=== PATIENT | male | born 1930 | race African-American/Black ===

== ENCOUNTER 2017-02-13 12:59 | Inpatient (IN) ==
--- NOTE | 2017-02-13 14:06 | ED EKG INTERP ---
EKG Interpretation - EKG Time of EKG reading by physician:: 13:40 EKG Read and Signed by:: Reagan Simpson EKG Interpretation (*Must complete 3 of following elements*): Abnormal Rate: 69 Rhythm: normal sinus rhythm Comments: nonspecific T wave abnormality. Attestation - Scribe Verification/Attestation Scribe:: Kathi Burgos Acting as Scribe for:: Reagan Simpson Scribe documention review:: This chart was documented by a scribe and accurately reflects the service the provider performed and the decisions made by the provider.
--- NOTE | 2017-02-13 14:33 | PROVIDER DOCUMENTATION ---
HPI-Respiratory General - General Chief Complaint: Shortness of Breath Stated Complaint: SOB Time Seen by Provider: 02/13/17 14:19 Source: patient, family Allergies/Adverse Reactions: Patient Allergies Allergy/AdvReac Type Severity Reaction Status Date / Time No Known Allergies Allergy Verified 08/27/16 17:51 Home Medications: Home Medication List Medication Instructions Recorded Confirmed Last Taken Type Albuterol Sulfate Inhaler 2 puff INH Q4-6H PRN PRN 08/27/16 02/13/17 02/13/17 08 :00 History [Ventolin Hfa] Hydralazine HCl 100 mg PO TID 08/27/16 02/13/17 02/13/17 12:00 History Omeprazole [Prilosec] 20 mg PO DAILY@0700 08/27/16 02/13/17 02/13/17 07:00 History Tamsulosin [Flomax] 0.4 mg PO DAILY 08/27/16 02/13/17 02/13/17 07:00 History Meclizine [Antivert] 25 mg PO Q6H PRN PRN 11/05/16 02/13/17 Unknown History Minoxidil [Loniten] 2.5 mg PO DAILY #30 tablet 11/15/16 02/13/17 02/13/17 08:00 Rx Albuterol Sulfate [Ventolin] 2 inh IH Q6HR 02/13/17 02/13/17 02/13/17 08:00 History Amlodipine Besylate [Norvasc] 5 mg PO DAILY 02/13/17 02/13/17 02/13/17 08:00 History Apixaban [Eliquis] 2.5 mg PO BID 02/13/17 02/13/17 02/13/17 08:00 History Cyclobenzaprine [Flexeril] 10 mg PO DAILY 02/13/17 02/13/17 02/13/17 08:00 History Diclofenac Sodium 50 mg PO TID 02/13/17 02/13/17 02/13/17 08:00 History Fluticasone/Vilanterol [Breo 1 each IH DAILY 02/13/17 02/13/17 02/13/17 08:00 History Ellipta 200-25 Mcg INH] Furosemide [Lasix] 40 mg PO BID 02/13/17 02/13/17 02/13/17 08:00 History LISINOpril [Prinivil] 20 mg PO DAILY 02/13/17 02/13/17 02/13/17 08:00 History Tramadol [Ultram] 50 mg PO Q6H PRN PRN 02/13/17 02/13/17 Unknown History - History of Present Illness-Resp Nature of Presenting Problem: 86 y/o M with history of CHF, HTN, asthma presents per Dr. Bai for SOB x 2- 3 months. Lasix was increased 2 weeks ago, however patient continues to have worsening SOB. Patient moved appt up from March to today due to worsening SOB. He was seen by Dr. Bai today and advised to come to the ER for failure of outpatient therapy. He is on home O2 (3L). Family reports compliance with asthma medications. He has no improvement with breathing tx. Review of Systems - Adult - REVIEW OF SYSTEMS - ADULT Constitutional: reports: no symptoms reported. denies: chills, fever Eyes: reports: no symptoms reported Ears, Nose, Mouth & Throat: reports: no symptoms reported Cardiovascular: reports: edema. denies: chest pain Respiratory: reports: see HPI Gastrointestinal: reports: no symptoms reported. denies: abdominal pain, nausea , vomiting Genitourinary: reports: no symptoms reported Musculoskeletal: reports: no symptoms reported Integumentary: reports: no symptoms reported Neurological: reports: no symptoms reported Psychiatric: reports: no symptoms reported Endocrine: reports: no symptoms reported Hematologic/Lymphatic: reports: no symptoms reported Allergic/Immunologic: reports: no symptoms reported All Other Systems: Reviewed and Negative Past History - Adult - PAST MEDICAL HISTORY-ADULT Review of Records: reports: Old Records Reviewed, Nursing Assessment Review, Medications Reviewed Physical Exam-General - PHYSICAL EXAM-ADULT Initial Vital Signs Reviewed: Yes - CONSTITUTIONAL General Appearance: alert, no apparent distress - EYES Eyes: PERRL/EOMI, pink conjunctivae - HEAD, EARS, NOSE, MOUTH & THROAT HENMT: normocephalic/atraumatic - NECK Neck: normal inspection - RESPIRATORY Respiratory: chest non-tender, no pleuratic chest pain, no respiratory distress , crackles - CARDIOVASCULAR Cardiovascular: regular rate, rhythm (pitting edema of upper and lower extremities) - GASTROINTESTINAL (ABDOMEN) Abdominal Exam: non tender, soft - LYMPHATIC Lymphatic: no adenopathy - MUSCULOSKELETAL Back Exam: normal inspection Extremity: pedal edema. negative: erythema, tenderness - SKIN Integumentary: normal color, normal turgor, warm/dry - PSYCHIATRIC Psych/Mental Status: normal mood/affect, normal thought content, normal thought process, oriented x 3 Progress - PLAN OF CARE/RESULTS Progress/Plan/Lab Results: 3:54PM: Discussed patient with Dr. Simpson who viewed the xray with me. Xray shows pulmonary edema. Last Cr (11/2016) was 1.5. Recommends Lasix 80mg IV. - REASSESSMENT Reassessment #1 Time Reassessed: 16:38 (VSS. O2 sat 99% on 3L. Patient sleeping and in no distress. Discussed admission with patient and family, who want admission for relief of volume overload.) Status: improving - XRAY 1 XRAY Study: Chest XRAY Interpretation: pulmonary edema c/w CHF Departure - Departure Time of Disposition Order: 16:31 DIAGNOSIS: Volume overload, CHF (congestive heart failure), Pulmonary edema, Shortness of breath Disposition: ADMITTED INPATIENT 09 Certified Medical Emergency: Emergent Condition: Stable Referrals: Melissa Delarosa MD [Primary Care Provider] - Attestation - Physician/ KATHLEEN Attestation Patient care was provided by Advanced Practice Provider:: Yes Advanced Practice Provider:: Tita Alonso Advanced Practice Provider documentation review:: The Mid-level provider documentation, treatment plan and medical decision making was reviewed by the physician who agrees with all treatment and medical decision making by the MLP.
--- NOTE | 2017-02-13 15:25 | Diag Imaging Result Document ---
PROCEDURE NAME: CHEST-PORTABLE - 02/13/2017 PORTABLE CHEST: COMPARISON: 11/05/2016. FINDINGS: The lungs are well expanded. The heart is enlarged. There is pulmonary edema. There are also pleural effusions that are small and possibly moderate in size. Atelectasis is found in the lower lungs. IMPRESSION: Findings consistent with congestive failure.
[2017-02-13 15:32] LABS: MANUAL DIFF NEEDED? NO
[2017-02-13 15:49] LABS: INR 1.22; PROTIME 12.4 Seconds (9.2-11.7)
[2017-02-13 15:53] LABS: ALBUMIN 3.5 g/dL (3.5-5.0); CALCIUM 9.3 mg/dL (8.8-10.2); MAGNESIUM 1.9 mg/dL (1.5-2.7); POTASSIUM 3.5 mmol/L (3.5-5.1); TOTAL BILIRUBIN 0.72 mg/dL (0.20-1.00); TOTAL PROTEIN 6.9 g/dL (6.3-8.3)
[2017-02-13] MEDS ORDERED: LASIX IV ONE (15:53)
[2017-02-13 15:59] LABS: BASO% 0.3 % (0.0-0.8); EOS# 0.08 X1000 (0.0-0.7); EOS% 2.3 % (0.0-10.0); HEMATOCRIT 23.9 % (42.0-52.0); HEMOGLOBIN 7.8 g/dL (14.0-18.0); LYMPH# 0.17 X1000 (1.2-3.4); MCH 31.2 PG (27-31); MCHC 32.6 g/dL (33-37); MCV 95.6 FL (81-99); MONO# 0.37 X1000 (0.11-0.59); MONO% 10.9 % (1.7-9.3); MPV 12.2 FL (7.4-10.4); NEUT% 81.5 % (42.2-75.2); PLT 102 X1000 (130-400)
[2017-02-13] MEDS ORDERED: ANTIVERT PO PRN (16:50)
[2017-02-13] MEDS ORDERED: VENTOLIN HFA INH PRN (16:50)
[2017-02-13] MEDS ORDERED: VOLTAREN PO SCH (17:00)
[2017-02-13 17:23] LABS: IRON SATURATION 29 %; TIBC 145 ug/dL; TOTAL IRON 42 ug/dL (53-167); UNBOUND IRON 103 ug/dL (112-346)
--- NOTE | 2017-02-13 17:45 | HISTORY AND PHYSICAL ---
HISTORY OF PRESENT ILLNESS: This is an 86-year-old. His main complaint is having more shortness of breath, trouble breathing, increased orthopnea, noticed increased swelling in his legs, but also was arms. Denies fever or chills. No pleuritic pain. No pressure from his chest. He is trying to get ready to the possibly have a TURP for benign prostatic hypertrophy. He has had to have a Apple catheter placed and Dr. Corey Bustillo has been involved in that, so he had a Apple catheter in. OTHER PAST MEDICAL HISTORY: 1. Atrial fibrillation, which I think is chronic. 2. Hypertension. 3. Dyslipidemia. 4. COPD. 5. Catheter placement. Benign prostatic hypertrophy. 6. He has been told he had congestive heart failure and looking back he has had a myocardial perfusion scan done in March 2015 and negative Lexiscan stress electrocardiogram. Images revealed dilated left ventricle. There is a fixed defect in the mid and base inferior wall and in addition there is a fixed defect in the left ventricle diagnostic of infarct or scar. Ejection fraction is 52%. Low-grade aliza-infarct ischemia in the inferior wall at that time. Echocardiogram done in 08/29/2016, study technically difficulty, had moderate concentric LVH. Ejection fraction 55%. Moderate to significantly dilated right ventricle. Mild degree of aortic stenosis. Mean gradient was 16 mmHg. Moderate degree of aortic regurgitation. Impaired left ventricular relaxation, and a moderate degree of mitral regurgitation. Pulmonary pressure was 47 mmHg at that time. 7. He had carotid Doppler, coronary calcium report. I am not sure that I can pull up these results. He had a carotid Doppler study in March 2015, right side remains satisfactory patent, post endarterectomy so apparently he has had a right endarterectomy and the left, stenosis was 40-59%. REVIEW OF SYSTEMS: General: He is not sure but thinks he is gaining weight. Mainly fluid weight, apparently he has been eating okay. He has reported increased shortness of breath, increased dyspnea on exertion. Increased orthopnea. Denies any chest pain, pleuritic pain. HEENT: Unremarkable. Respiratory: As above. Cardiovascular: No chest pain or tachy palpitation. GI/: No gross hematuria dysuria. Neurologic: No new focal complaints. Endocrinologic/Hematologic: No significant history. PHYSICAL EXAMINATION: GENERAL: Awake and alert, pleasant, oriented x3. VITAL SIGNS: Afebrile, temperature 93.5 degrees, pulse 69, respirations 24, blood pressure 133/86. HEENT: Pupils are equal, round. LUNGS: Clear with rales at the bases, but no wheezing. CVP was about x11 cm water pressure from angle of Toño. Positive hepatojugular reflux. EXTREMITIES: Without clubbing, cyanosis, or edema. His arms with 3+ edema in his legs with a 1 to 2+ edema from ankle all the way to the corey. ABDOMEN: Soft. SKIN: Warm and dry. INTEGUMENT: Chronic venous stasis dermatosis appreciated. LABORATORY DATA: White count 3410, hematocrit 23, platelet count 102,000. Sodium 142, potassium 3.5, chloride 102, bicarb 29, BUN 33, creatinine 1.6. Blood sugar 113, magnesium 1.9, proBNP was 35,000. Troponin was 0.101 and CPK 46. ProTime 12.4, PTT 27. IMAGING: Chest x-ray, findings consistent with congestive heart failure. Lungs were well expanded. Heart enlarged. There is pulmonary edema. There are also pleural effusions that are small and possibly moderate-sized, atelectasis found in both lower lungs. ASSESSMENT AND PLAN: 1. Appears to have diastolic dysfunction and he has chronic kidney disease. His serum creatinine is 1.6. Comparing his creatinines in the past, his lowest was 1.3 in November 2016, his baseline is somewhere between 1.3 and 1.6, so this may not have changed much. Electrolytes look okay. I am going to start off with 80 mg of Lasix intravenously q.12 hours. Ask Cardiology to kind of help assist as well as Dr. English for Nephrology. We will follow electrolytes, including magnesium. We will check his thyroid function. Gives no history to indicate ischemic symptoms or cardiac ischemia. 2. Chronic kidney disease, aware. 3. Benign prostatic hypertrophy. Trying to get ready for a transurethral resection of the prostate. 4. Hypertension. Blood pressures, we will monitor. MEDICATIONS: He is on Ultram 50 mg p.o. q.6 hours p.r.n. Flomax 0.4 mg a day. Prilosec 20 mg a day. Minoxidil 2.5 mg daily. Antivert 25 q.6h p.r.n. Lisinopril 20 mg a day. Hydralazine 100 mg t.i.d. Lasix 40 mg b.i.d. Breo Ellipta 200-25, 1 a day. Diclofenac 50 mg p.o. t.i.d. Flexeril 10 mg daily. Eliquis 2.5 mg b.i.d. Amlodipine 5 mg a day. He is on albuterol sulfate and albuterol inhaler and also puffer.
[2017-02-13] MEDS: ALBUTEROL NEB INH SCH (22:00)
[2017-02-13] MEDS: APRESOLINE PO SCH (22:52)
[2017-02-13] MEDS: ELIQUIS PO SCH (22:53)
[2017-02-14] MEDS: ALBUTEROL NEB INH SCH ×4 (04:00→22:45)
--- NOTE | 2017-02-14 07:51 | EKG Report ---
Test Performed on : 02/14/2017 07:37:08 AM Test Reason : Heart Failure Admission Blood Pressure : / mmHG Vent. Rate : 068 BPM Atrial Rate : 068 BPM P-R Int : 000 ms QRS Dur : 104 ms QT Int : 444 ms P-R-T Axes : 000 072 232 degrees QTc Int : 472 ms Atrial fibrillation. Low voltage QRS Cannot rule out Anterior infarct , age undetermined Abnormal ECG When compared with ECG of 14-FEB-2017 07:36, (Unconfirmed) Nonspecific T wave abnormality no longer evident in Anterior leads QT has lengthened Confirmed by Marck CARVALHO, Skip Santana ([id number]) on 02/16/2017 1:14:24 PM
[2017-02-14] MEDS ORDERED: NORVASC PO SCH (09:00)
[2017-02-14] MEDS ORDERED: LONITEN PO SCH (09:00)
[2017-02-14 09:03] LABS: MANUAL DIFF NEEDED? NO
[2017-02-14 09:17] LABS: BASO% 0.3 % (0.0-0.8); EOS# 0.13 X1000 (0.0-0.7); EOS% 3.4 % (0.0-10.0); HEMATOCRIT 23.9 % (42.0-52.0); HEMOGLOBIN 7.7 g/dL (14.0-18.0); LYMPH# 0.21 X1000 (1.2-3.4); LYMPH% 5.5 % (20.5-51.1); MCH 30.4 PG (27-31); MCHC 32.2 g/dL (33-37); MCV 94.5 FL (81-99); MONO# 0.35 X1000 (0.11-0.59); MONO% 9.1 % (1.7-9.3); MPV 12.3 FL (7.4-10.4); NEUT% 81.7 % (42.2-75.2); PLT 102 X1000 (130-400); RBC 2.53 XMIL (4.7-6.1)
[2017-02-14 10:02] LABS: ALBUMIN 3.5 g/dL (3.5-5.0); MAGNESIUM 1.9 mg/dL (1.5-2.7); POTASSIUM 3.5 mmol/L (3.5-5.1); TOTAL BILIRUBIN 0.79 mg/dL (0.20-1.00); TOTAL PROTEIN 6.7 g/dL (6.3-8.3); URIC ACID 9.1 mg/dL (3.4-7.0)
[2017-02-14 10:22] LABS: FREE T4 1.19 ng/dL (0.93-1.70)
[2017-02-14] MEDS: BREO ELLIPTA 200/25 MCG INH INH SCH (10:35)
[2017-02-14] MEDS ORDERED: LASIX IV ONE (11:00)
[2017-02-14] MEDS: APRESOLINE PO SCH ×3 (11:00→21:12)
[2017-02-14] MEDS: ELIQUIS PO SCH ×2 (11:00→21:12)
[2017-02-14] MEDS: ASPIRIN PO SCH (11:03)
[2017-02-14] MEDS: PRINIVIL PO SCH (11:06)
[2017-02-14] MEDS: PRILOSEC PO SCH (11:09)
[2017-02-14] MEDS: ZAROXOLYN PO SCH (11:09)
[2017-02-14] MEDS: LASIX IV SCH (11:09)
[2017-02-14] MEDS: FLEXERIL PO SCH (11:10)
[2017-02-14] MEDS: FLOMAX PO SCH (11:11)
--- NOTE | 2017-02-14 12:11 | PROGRESS NOTE ---
DATE: 02/14/2017 Mr. Hutchison is breathing a little bit better. He is diuresing some. He is in sinus rhythm at the present time. Denies any pain. Apple catheter in place. Afebrile. Pulse 68, respirations 16, blood pressure 130/72.HEENT: Pupils are equal, round, react to light and accommodation. Oral and nasal mucosa unremarkable. Conjunctivae pink. CVP about 12 cm of water pressure. Lungs: With rales at the bases anterolateral Cardiovascular: Regular rhythm and rate. Abdomen: With some edema as well as upper extremities with 2+ to 3+ edema. Lower extremities 2+ edema. LABS: Reviewed from today: White count 3840, hematocrit 23, platelet count 102,000. Chemistry: Sodium 146, potassium 3.5, chloride 102, bicarb 29, BUN 33, creatinine 1.5. ProBNP 34,844. Troponin was 0.122. ASSESSMENT AND PLAN: 1. Anasarca with diastolic dysfunction. Long history of hypertension. Continue to try and diurese. Cardiology and Nephrology involved. Creatinine was 1.5 this morning. 2. Chronic kidney disease. Making some urine output. Urine output from yesterday was about 1000 mL. 3. Benign prostatic hypertrophy. Apple catheter in. I have discussed with Dr. Bustillo. Make sure we keep the Apple catheter in place. He may need a TURP, he probably will need [address], but right now trying to get his fluid down. 4. Hypertension. Blood pressure appears fairly well controlled. Watching his afterload. Review of his orders: We have him on Zaroxolyn 5 mg a day. Aspirin 81 mg a day. Prinivil 20 mg a day. Prilosec 20 mg daily. Norvasc 5 mg a day. Lasix 80 mg IV q.12. Apresoline 100 mg t.i.d. Flomax 0.4 mg a day. He is taking Flexeril 10 mg a day. Eliquis 2.5 b.i.d. Fluticasone inhaler 1 puff b.i.d. Albuterol inhalers as needed.
--- NOTE | 2017-02-14 14:04 | CONSULTATION ---
DATE OF CONSULTATION: 02/14/2017 IMPRESSIONS: 1. Acute on chronic biventricular heart failure of mixed etiology with diastolic left ventricular failure and cor pulmonary contributing. Patient has associated anasarca. 2. Atrial fibrillation, chronic. 3. Severe chronic obstructive pulmonary disease requiring home oxygen. 4. Mild coronary atherosclerosis by previous coronary angiography in 2014. 5. Hyperlipidemia. 6. Significant anemia, recurrent. Etiology not clear. 7. History of atherosclerotic carotid disease. 8. Acute on chronic renal failure. RECOMMENDATIONS: 1. Diurese with intravenous Lasix. 2. Given severity of anemia and with patient symptomatic from congestive heart failure and fever, transfusion of packed red cells. 3. Manage COPD as you are doing. HISTORY: This 86-year-old male with a past history of chronic congestive heart failure with anasarca, severe COPD requiring home oxygen, chronic atrial ablation, anemia, chronic kidney disease, and hypertension, was admitted through the emergency room for management of progressive dyspnea and worsening anasarca with diagnosis of acute on chronic congestive heart failure. He has a long history of dyspnea symptoms and has severe COPD requiring home oxygen. He has also had significant anasarca in the past and it is not really clear if he has ever completely been free of edema in the last 6 months or so. He was hospitalized several months ago with severe anemia and congestive heart failure and improved with diuresis. He did require transfusion at that time. He was seen in our office in December for preop evaluation for a urologic procedure and was noted to have anasarca at that time and edema as well. He has continued with significant edema and anasarca and has more recently developed progressive shortness of breath, prompting him to come in. There has been no chest pain. He is not aware of any bright red blood per rectum or melena. PAST MEDICAL HISTORY: 1. Chronic congestive heart failure of mixed etiology with left ventricular diastolic dysfunction and cor pulmonale, associated edema with tendency for anasarca. 2. Mild coronary atherosclerosis. 3. Chronic atrial fibrillation. 4. Severe COPD requiring home oxygen. 5. Hypertension. 6. Atherosclerotic carotid disease. 7. Hyperlipidemia. 8. Anemia, recurrent. 9. Prostate hypertrophy. MEDICATIONS: Prior to admission as listed. SOCIAL HISTORY: He does not currently smoke or use alcohol. FAMILY HISTORY: Negative for premature coronary disease. REVIEW OF SYSTEMS: Pulmonary: Acute dyspnea that is worsening. He denies orthopnea. Cardiac: Negative for chest pain or palpitations. There has been no syncope. Gastrointestinal: Negative for melena or bright red blood per rectum. Constitutional: Noncontributory. The remainder of the review of systems negative/noncontributory. Fourteen total systems reviewed. PHYSICAL EXAMINATION: General: This is an elderly male in no distress. On supple oxygen per nasal cannula. Vital signs: Blood pressure 130/85, heart rate 62 and irregular. HEENT: Extraoculars appear intact. Mucous membranes are moist. Neck: Supple. Jugular venous distention is demonstrated consistent with elevated central venous pressure. Carotid bruits cannot be appreciated. Chest: Auscultation of the chest reveals diminished breath sounds at bases as well as bibasilar inspiratory crackles. Cardiac: Reveals a irregular rate and rhythm with a grade 2/6 holosystolic murmur at the apex superimposed on a grade 2 crescendo decrescendo systolic murmur at the apex. There is also a grade 2/6 crescendo decrescendo systolic murmur at the right upper sternal border. Gallop could not be appreciated. Abdomen: Nontender. There is considerable edema and anasarca in that the patient's abdominal wall is edematous in its lower portion and this edema extends up from the thighs. Extremities: Demonstrate anasarca with severe edema of the lower extremities and the upper extremities. Neurologic Exam: Reveals him to be alert and very responsive. Speech is fluent. He moves all 4 extremities equally well. Psych: Noted to be appropriate. DIAGNOSTIC STUDIES: ECG demonstrates atrial fibrillation and low voltage QRS.
--- NOTE | 2017-02-14 16:15 | ECHO REPORT ---
ORDER DATE: 02/14/2017 PROCEDURE: Echocardiogram. DATE OF SURGERY: 02/13/2017. ECHOCARDIOGRAPHIC MEASUREMENTS: 1. Interventricular septum 1.4 2. Left ventricular posterior wall 1.4. 3. Diastolic diameter 5.5. 4. Left atrium 4.8. 5. Aorta 3.8. INTERPRETATION: 1. Aorta aortic valve leaflets are calcified, trileaflet. 2. Pulmonic valve was not well visualized. 3. Normal left ventricular cavity size. Concentric left ventricular hypertrophy. Estimated ejection fraction of 55%. 4. Right ventricle is dilated with reduced right ventricular systolic function. 5. There is biatrial enlargement. 6. There is mild to moderate mitral regurgitation. 7. There is mild tricuspid regurgitation. Peak velocity across the tricuspid valve was 3 m/sec. Pulmonary artery systolic pressure of 50 mmHg. 8. Peak velocity across the aortic valve was 3 m/sec with a mean gradient of 18 mmHg. By planimetry, aortic valve area of 2.2. There is aortic sclerosis. Cannot rule out mild aortic stenosis associated with mild aortic regurgitation. 9. There is pleural effusion noted. 10. There is no pericardial effusion or obvious intracardiac mass or thrombus seen.
[2017-02-14] MEDS: NS 500 ML IV SCH (16:56)
--- NOTE | 2017-02-14 17:43 | CONSULTATION ---
DATE OF CONSULTATION: 02/14/2017 REASON FOR CONSULTATION: Assistance with management and volume overload. HISTORY OF PRESENT ILLNESS: Mr. Hutchison is an 86-year-old white male who presented to our office yesterday for routine office visit. He was 30+ pounds above his previous weight and had significant functional limitation as well as shortness of breath with exertion. His shortness breath is really not bothersome when he is sitting still. Swelling is severe. His symptoms have been progressive in their severity and ultimately have gotten to the point where he could not be managed as an outpatient, so he was admitted. Since admission last night, he is net negative approximately 1.5 L with no discernible improvement in his symptoms. No chest pain or palpitation or nausea or vomiting. PAST MEDICAL HISTORY: 1. Congestive heart failure with cor pulmonale. 2. Atrial fibrillation. 3. Chronic kidney disease stage 3. 4. COPD. 5. Hypertension. 6. Atherosclerotic heart disease. 7. Hyperlipidemia. 8. Anemia. ALLERGIES: None. SOCIAL HISTORY: He is cared for by his son. Former smoker. FAMILY HISTORY: Otherwise noncontributory. REVIEW OF SYSTEMS: Otherwise noncontributory. PHYSICAL EXAMINATION: Vital Signs: Blood pressure 144/65, heart rate 68, respiration 18, afebrile. General: He is an elderly man, sitting at 45 degrees, in no distress. Skin: Warm and dry. Conjunctivae are pink. Pupils are equal. Oropharynx is clear. Edentulous. Normal tongue. Neck: Supple. Trachea is midline. Neck veins are distended. Heart: Regular with systolic murmur. Lungs: Have equal breath sounds. Poor air movement. Few crackles. Abdomen: Soft and nontender. Bowel sounds are present. Extremities: Have woody edema up to the chest. No weeping. No skin lesions. No clubbing or cyanosis. IMPRESSION: 1. Exogenous fluid overload. Multifactorial. Associated with his kidney disease and his heart disease. He is currently receiving IV Lasix as well as metolazone. We will observe his response over the next 48 hours. He was receiving both amlodipine and minoxidil. I stopped his minoxidil and we will likely need to stop his amlodipine as well because of his swelling. We will need to use other agents to control his pressure. 2. Acid base and electrolytes are in target. We will follow.
[2017-02-15] MEDS: LASIX IV SCH ×3 (03:03→20:00)
[2017-02-15] MEDS: ALBUTEROL NEB INH SCH ×4 (03:14→22:54)
[2017-02-15 05:38] LABS: CALCIUM 9.2 mg/dL (8.8-10.2); POTASSIUM 3.7 mmol/L (3.5-5.1)
[2017-02-15] MEDS: PRILOSEC PO SCH (06:36)
--- NOTE | 2017-02-15 07:36 | EKG Report ---
Test Performed on : 02/15/2017 06:22:10 AM Test Reason : chf, dyspnea Blood Pressure : / mmHG Vent. Rate : 077 BPM Atrial Rate : 049 BPM P-R Int : 000 ms QRS Dur : 102 ms QT Int : 384 ms P-R-T Axes : 000 -16 187 degrees QTc Int : 434 ms Atrial fibrillation. Low voltage QRS Cannot rule out Inferior infarct , age undetermined Cannot rule out Anterior infarct (cited on or before 14-FEB-2017) Abnormal ECG When compared with ECG of 14-FEB-2017 07:37, (Unconfirmed) Minimal criteria for Inferior infarct are now present Questionable change in initial forces of Anterior leads Confirmed by Marck CARVALHO, Skip Santana ([id number]) on 02/16/2017 1:15:38 PM
[2017-02-15] MEDS: BREO ELLIPTA 200/25 MCG INH INH SCH (07:43)
[2017-02-15] MEDS: ASPIRIN PO SCH (08:13)
[2017-02-15] MEDS: FLOMAX PO SCH (08:13)
[2017-02-15] MEDS: APRESOLINE PO SCH ×3 (08:13→20:00)
[2017-02-15] MEDS: PRINIVIL PO SCH (08:13)
[2017-02-15] MEDS: ELIQUIS PO SCH ×2 (08:13→20:00)
[2017-02-15] MEDS: ZAROXOLYN PO SCH (08:13)
[2017-02-15] MEDS: FLEXERIL PO SCH (08:13)
[2017-02-15 08:48] LABS: HEMATOCRIT 27.6 % (42.0-52.0); MCH 30.3 PG (27-31); MCHC 32.6 g/dL (33-37); MCV 92.9 FL (81-99); MPV 13.7 FL (7.4-10.4); RBC 2.97 XMIL (4.7-6.1)
--- NOTE | 2017-02-15 13:36 | PROGRESS NOTE ---
DATE: 02/15/2017 TIME SEEN: 0730 hours. SUBJECTIVE: Mr. Hutchison is resting quietly in bed. He remains short of breath. Continues on O2. He continues with IV Lasix. He does deny chest pain. Increased swelling to upper and lower extremities bilateral. MOST RECENT VITAL SIGNS: Previous temperature 97.6 degrees, blood pressure 169/ 89, heart rate is 78, respirations are 20 to 24. He remains on 3 L nasal cannula. Last recorded saturation 95%. He has had 1218 in; he has had 2450 out per Apple catheter. MOST RECENT LABS: Sodium 145, potassium 3.7, chloride 100, CO2 29, BUN 36, creatinine 1.6, glucose 94. His anion gap is 16. Calcium 9.2, magnesium 2.0, albumin 3.5 yesterday. His white count 5.35, hemoglobin 9, hematocrit 27.6, platelet count 99. Stool for occult blood is positive. Patient has been transfused 2 units of packed red blood cells during this hospitalization. OBJECTIVE: General: On physical exam, this is an 86-year-old, male who is resting in bed. He is in mild respiratory distress. Head of the bed is elevated 90 degrees. O2 remains on. Patient has positive JVD. HEENT: Normocephalic, atraumatic. Conjunctiva is pale. He has YVONNE. Mucous membranes are dry. Neck: Supple. Trachea midline. Positive JVD noted. Cardiovascular: He is regular rate and rhythm. He has a systolic murmur noted. No gallop. Lungs: Diminished breath sounds with poor air movement. Continues with crackles bibasilar. Remains on O2. Equal excursion. Abdomen: Large, round, soft, nontender. Extremities: Have woody edema to the chest. He continues with full anasarca to his upper extremities and lower extremities, 4+ pitting. This also continues up into his mid chest area. He has no weeping evident. Integumentary: No rashes or lesions evident. No blebs are noted. Genitourinary: Not inspected. Apple catheter remains in place. Neurological: He is alert and oriented x3. ASSESSMENT AND PLAN: 1. Fluid volume overload. This remains multifactorial. 2. Patient has chronic kidney disease stage III. 3. He appears to have right-sided heart failure. He is receiving intravenous Lasix; we will increase this to 120 mg twice daily with continuing his metolazone for assistance. He had been receiving both amlodipine and minoxidil; these have been stopped, more than likely both contributing to his swelling. He is currently in a negative fluid balance with much to go secondary to having greater than a 30 pound weight gain in our office within 2 months and continued increased work of breathing. 4. Electrolytes. This remains stable. 5. Acid-base balance. This is stable. 6. Anemia. This has improved with a hemoglobin of 9 after 2 units of packed red blood cells transfusion. I would like to thank you for allowing us to follow with this patient. Seen, data reviewed, discussed with Miranda Figueroa on 02/15/17. I agree with the above assessment and plan of care. rg Dictated by TERESSA Marino for Rayo English MD [facility]
[2017-02-15 14:09] LABS: URINE SOURCE CATH
[2017-02-15 14:19] LABS: BILIRUBIN URINE NEGATIVE (NEGATIVE); BLOOD URINE SMALL (NEGATIVE); COLOR ORANGE; GLUCOSE URINE NEGATIVE (NEGATIVE); LEUKOCYTES URINE LARGE (NEGATIVE); NITRITE URINE NEGATIVE (NEGATIVE); PH URINE 7.5; PROTEIN URINE 50 mg/dL (NEGATIVE); SP GRAVITY URINE 1.007; TURBIDITY URINE TURBID (CLEAR); UROBILINOGEN URINE NORMAL (NORMAL)
[2017-02-15 14:24] LABS: UR PROT RANDOM 68.9 mg/dL; URINE MICRO REVIEW NEEDED? YES
[2017-02-15 14:32] LABS: UR EPITHELIAL CELLS <10 /HPF (<10); URINE BACTERIA 4+ /HPF; URINE RBC TNTC /HPF (<10); URINE WBC TNTC /HPF (<10)
[2017-02-15 14:54] LABS: URINE CASTS NONE SEEN; URINE CRYSTALS CA OXALATE PRESENT; URINE SMALL ROUND CELLS NONE SEEN
--- NOTE | 2017-02-15 15:19 | PROGRESS NOTE ---
DATE: 02/15/2017 SUBJECTIVE: He looks like he is breathing better. You can tell is a little bit of swelling that has gone down in his arm, still has 2+ pitting edema in both arms and in his lower extremities and waist and abdomen . OBJECTIVE: Vital signs: Afebrile temperature 97.8 degrees, pulse 70, respirations 20, blood pressure 139/69. HEENT: Pupils are equal, round. General: He is awake, alert and oriented. CVP appears about 9, 10 cm water pressure. Lungs: With rales at the bases. Decreased breath sounds both bases. No wheezing. Cardiovascular: Regular rhythm, rate without murmur, S3. Abdomen: Soft. Skin: Is warm and dry. Urine output from yesterday was about 11-1200 mL. LAB: From this morning white count 5350, hematocrit was 27, platelet count 99,000. Chemistry sent from this morning sodium 145, potassium 3.7, chloride 100, bicarb 29, BUN 36, creatinine 1.6. His proBNP was 34,844. Note he did have another EKG this morning. EKG reviewed is atrial fibrillation, low voltage. Rate is around 80. No real change from previous EKG. ASSESSMENT AND PLAN: 1. 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 Continue to try and diurese and watch afterload. Making some progress. 2. Atrial fibrillation chronic, rate controlled. 3. Severe chronic obstructive pulmonary disease requiring O2 at home. Continue supplemental O2. He is breathing a little more comfortably. 4. Mild coronary atherosclerosis, previous coronary angiographic in 2014. 5. Hyperlipidemia. 6. Significant anemia stable. 7. Atherosclerotic carotid disease, peripheral vascular disease. 8. Acute on chronic renal failure. Reviewed orders. Continue present measures. Appears to clinically be improving. He is on Lasix 120 mg IV q.12h, IV is at 21 mL an hour normal saline, hydralazine 100 mg p.o. t.i.d., Zaroxolyn 5 mg a day, aspirin 81 mg a day, Prinivil 20 mg a day, omeprazole 20 mg a day, Flomax 0.4 mg a day, Eliquis 2.5 b.i.d., Flexeril 10 mg daily, fluticasone inhaler. Of course will watch electrolytes including magnesium and potassium.
[2017-02-15] MEDS: NS 500 ML IV SCH (16:21)
--- NOTE | 2017-02-15 19:30 | PROGRESS NOTE ---
DATE: 02/15/2017 SUBJECTIVE: Patient denies dyspnea or chest discomfort. Diuresis appears to have been established with intravenous Lasix. OBJECTIVE: Vital Signs: Blood pressure 138/82, heart rate 78, temperature 98.2 degrees. Intake and output demonstrates established diuresis. Neck: Supple. Jugular distention cannot be appreciated with external jugular venous line in place. Chest: Auscultation of the chest reveals diminished breath sounds at bases bilaterally. Cardiac Exam: Reveals irregular rate and rhythm with grade 2/6 systolic murmur at the right upper sternal border and grade 2/6 systolic murmur at the left apex. Abdominal wall is edematous. Anasarca is present with prominent edema in all 4 extremities and abdominal wall. Echocardiography demonstrates left hypertrophy with preserved left ventricular systolic function. Right ventricle is enlarged with reduced right ventricular systolic function. IMPRESSION: 1. Acute on chronic biventricular heart failure of mixed etiology with diastolic left ventricular failure and right ventricular systolic failure with associated anasarca. 2. Chronic atrial fibrillation. 3. Severe COPD requiring home oxygen. 4. Mild coronary atherosclerosis by previous coronary angiography in 2014. 5. Hyperlipidemia. 6. Significant anemia, recurrent. 7. History of atherosclerotic carotid disease. 8. Acute on chronic renal failure. RECOMMENDATIONS: Continue diuresis with intravenous Lasix.
[2017-02-16] MEDS: ALBUTEROL NEB INH SCH ×4 (03:54→21:53)
[2017-02-16 05:33] LABS: POTASSIUM 3.7 mmol/L (3.5-5.1)
[2017-02-16] MEDS: PRILOSEC PO SCH (06:05)
[2017-02-16] MEDS: BREO ELLIPTA 200/25 MCG INH INH SCH (07:47)
[2017-02-16] MEDS: PRINIVIL PO SCH (08:07)
[2017-02-16] MEDS: ZAROXOLYN PO SCH (08:07)
[2017-02-16] MEDS: FLOMAX PO SCH (08:07)
[2017-02-16] MEDS: APRESOLINE PO SCH ×3 (08:07→21:05)
[2017-02-16] MEDS: LASIX IV SCH ×2 (08:12→21:05)
[2017-02-16] MEDS: FLEXERIL PO SCH (08:12)
[2017-02-16] MEDS: ELIQUIS PO SCH ×2 (08:13→21:05)
[2017-02-16] MEDS: ASPIRIN PO SCH (08:13)
--- NOTE | 2017-02-16 11:21 | PROGRESS NOTE ---
DATE: 02/16/2017 SUBJECTIVE: Mr. Hutchison had a pretty good night. He can tell the swelling is going down. OBJECTIVE: Vital signs: Temperature 98.8 degrees, pulse 77, respirations 20, blood pressure 132/60. Lungs: Clear in all lung ryan. Cardiovascular exam: Regular rhythm and rate without murmur or S3. Abdomen: Soft. Skin: Warm and dry. : Urine output was 1550 mL. LABS: White count 5350, hematocrit 27, platelet count 99,000. Sodium 144, potassium 3.7, chloride 101, BUN 41, creatinine 2.2. Of note, it has come up from 1.6. ASSESSMENT AND PLAN: 1. Acute on chronic biventricular heart failure with mixed etiology diastolic left ventricular failure and associated anasarca. Will continue to diurese. Note, the creatinine has bumped up a little bit. I may need to cut back on the amount of Lasix and diuresis at a slower rate. 2. Chronic atrial fibrillation, rate controlled. 3. Severe chronic obstructive pulmonary disease requiring home oxygen. 4. Mild coronary atherosclerosis. Previously had a coronary angiogram in 2014. 5. Hyperlipidemia. 6. Significant anemia. Follow if remains stable. 7. Atherosclerotic carotid disease and peripheral vascular disease. 8. Chronic renal failure, acute on chronic. We will decrease the Lasix I think down to 80 mg intravenous every 12 hours, but we will discuss with Dr. English before we do that. Watch his renal function. Note he is on an EMILI inhibitor of Prinivil 20 mg daily.
--- NOTE | 2017-02-16 13:35 | PROGRESS NOTE ---
DATE: 02/16/2017 SUBJECTIVE: He is about the same today. Shortness of breath is modest. OBJECTIVE: Vital signs: Blood pressure 132/61, heart rate 77, respiration 21. Intake 600 mL, output 1.6 liters. General: No acute distress. Skin: Warm and dry. HEENT: Conjunctivae are pink. Heart: Regular. Lungs: Equal. Abdomen: Nonfirm. Extremities: Extremities have 4+ edema . LABORATORY DATA: Sodium 144, potassium 3.7, chloride 101, bicarbonate 30, BUN 41, creatinine 2.2. IMPRESSION: Severe right-sided heart failure. He is receiving aggressive IV diuretics with only modest results. In this context, his BUN and creatinine are increasing. We will continue current treatment over the weekend and reassess on Saturday. If kidney function continues to deteriorate, we will need to consider other options.
[2017-02-16] MEDS: NS 500 ML IV SCH (15:09)
[2017-02-16] MEDS: CHLORASEPTIC SPRAY MT PRN ×2 (15:47→21:06)
[2017-02-16] MEDS: ULTRAM PO PRN (17:39)
[2017-02-16] MEDS: TYLENOL PO PRN (21:04)
[2017-02-17] MEDS: ULTRAM PO PRN (01:24)
[2017-02-17] MEDS: ALBUTEROL NEB INH SCH ×4 (03:53→21:36)
[2017-02-17] MEDS: PRILOSEC PO SCH (06:30)
[2017-02-17] MEDS: BREO ELLIPTA 200/25 MCG INH INH SCH (07:45)
[2017-02-17] MEDS: FLEXERIL PO SCH (08:25)
[2017-02-17] MEDS: LASIX IV SCH ×2 (08:25→20:33)
[2017-02-17] MEDS: ZAROXOLYN PO SCH (08:25)
[2017-02-17] MEDS: ASPIRIN PO SCH (08:25)
[2017-02-17] MEDS: FLOMAX PO SCH (08:25)
[2017-02-17] MEDS: PRINIVIL PO SCH (08:25)
[2017-02-17] MEDS: ELIQUIS PO SCH ×2 (08:25→20:33)
[2017-02-17] MEDS: APRESOLINE PO SCH ×3 (08:27→20:33)
[2017-02-17 09:56] LABS: CALCIUM 8.4 mg/dL (8.8-10.2); POTASSIUM 3.3 mmol/L (3.5-5.1)
--- NOTE | 2017-02-17 11:28 | PROGRESS NOTE ---
DATE: 02/17/2017 SUBJECTIVE: I think the swelling is going down. He still has pitting edema in both arms and really from his waist down. Scrotum still with swelling, scrotal sac and penis still swelling. Legs with 2 to 3+ pitting edema, symmetrical. PHYSICAL EXAMINATION: Vital Signs: Temperature 97.9 degrees, pulse 60, respirations 18, blood pressure 120/68. HEENT: Pupils are equal, round, and reactive. Respiratory: Lungs are clear in all lung ryan. Cardiovascular Examination: Regular rhythm and rate without murmur or S3. Abdomen: Soft. Skin: Is warm and dry. Is and Os: Urine output was 885 mL. ASSESSMENT AND PLAN: 1. Severe right-sided heart failure. Receiving aggressive intravenous diuretics with modest results. His BUN and creatinine are increasing. Continue the current treatment. Reassess on Saturday. If function continues to deteriorate, consider other options such as hemofiltrate. 2. Chronic atrial fibrillation. Rate controlled. 3. Severe chronic obstructive pulmonary disease, requiring home oxygen. 4. Mild coronary atherosclerosis, aware. He has had coronary angiogram in 2014. 5. Hyperlipidemia. 6. Significant anemia, stable. 7. Peripheral vascular disease. 8. Chronic renal failure with acute renal injury. LAB: Hematocrit is stable at 27. Creatinine is 2.6, sodium 143, potassium 3.3, chloride 102, bicarb 29, BUN 48, creatinine 2.6. REVIEW OF ORDERS: Getting 120 mg IV q.12 hours, Zaroxolyn 5 mg daily, hydralazine 1000 mg t.i.d., Prinivil 20 mg a day, Eliquis 2.5 b.i.d. He is on fluticasone. Once again, Is and Os, urine output looks like it was little over a liter. His balance, looks like he has had a little over 3 L diuresed since 02/14/2017.
[2017-02-17] MEDS: NS 500 ML IV SCH (16:19)
[2017-02-17] MEDS: TYLENOL PO PRN (20:37)
[2017-02-17] MEDS: CHLORASEPTIC SPRAY MT PRN (20:37)
[2017-02-18] MEDS: ALBUTEROL NEB INH SCH ×4 (03:15→22:04)
[2017-02-18] MEDS: CALMOSEPTINE OINTMENT TOP PRN (05:40)
[2017-02-18] MEDS: PRILOSEC PO SCH (06:13)
[2017-02-18] MEDS: BREO ELLIPTA 200/25 MCG INH INH SCH (07:44)
--- NOTE | 2017-02-18 08:08 | PROGRESS NOTE ---
DATE: 02/18/2017 SUBJECTIVE: Mr. Hutchison says he feels about the same. We have maybe diuresed 4 L off this last several days. Breathing is comfortable. Still lot of swelling in his arms and in his scrotum and his legs seemed to have gone down a little bit. That may be mainly from elevation. OBJECTIVE: Vital Signs: Temperature 98.2 degrees, pulse 72, respirations 16, blood pressure 153/49. HEENT: Pupils are equal, round. CVP less than 6 cm. Lungs: Clear in all lung ryan. Cardiovascular: Regular rhythm and rate without murmur or S3. Abdomen: Soft. Skin: Warm and dry. I's and O's: Input 840, output 100 mL. LABORATORY DATA: Sodium 144, potassium 3.3. These are labs from yesterday. Chloride 102, bicarb 13. BUN 48, creatinine 2.8. ASSESSMENT AND PLAN: 1. Severe right-sided heart failure, actually biventricular, but continue diuretics. Obviously going to need some help with getting the fluid off and so I discussed with Dr. English. Plan I think hemofiltration with maybe peritoneal dialysis as an outpatient. 2. Chronic atrial fibrillation, rate controlled. 3. Severe chronic obstructive pulmonary disease, requiring O2. 4. Coronary artery disease. No active ischemia at this time. 5. Hyperlipidemia. 6. Anemia, which is stable. 7. Peripheral vascular disease. 8. Acute on chronic renal failure. We have made his creatinine go up with diuresis. Last creatinine 2.6. It was 1.6 on . Review orders. I do not see any changes this point. He is getting Lasix 120 mg q.12. IVs at keep vein open or 21 mL an hour. Hydralazine 100 mg t.i.d., Zaroxolyn 5 mg daily, aspirin 81 mg a day, Prinivil 20 mg daily, Prilosec 20 mg a day, Flomax 0.4 mg a day, Flexeril 10 mg p.o. daily, Eliquis 2.5 mg b.i.d., and fluticasone 1 puff daily.
[2017-02-18] MEDS: FLEXERIL PO SCH (09:12)
[2017-02-18] MEDS: PRINIVIL PO SCH (09:12)
[2017-02-18] MEDS: CHLORASEPTIC SPRAY MT PRN (09:12)
[2017-02-18] MEDS: ASPIRIN PO SCH (09:13)
[2017-02-18] MEDS: APRESOLINE PO SCH ×3 (09:13→20:08)
[2017-02-18] MEDS: FLOMAX PO SCH (09:13)
[2017-02-18] MEDS: ZAROXOLYN PO SCH (09:13)
[2017-02-18] MEDS: LASIX IV SCH ×2 (09:16→20:10)
[2017-02-18] MEDS: ELIQUIS PO SCH ×2 (09:16→20:08)
[2017-02-18] MEDS: KLOR-CON PO SCH ×2 (09:21→20:09)
--- NOTE | 2017-02-18 09:33 | PROGRESS NOTE ---
DATE: 02/18/2017 SUBJECTIVE: Mr. Hutchison is resting quietly in bed. Head of the bed remains elevated. He remains on O2. He continues with modest complains of increased work of breathing with exertion. OBJECTIVE: Vital Signs: His most recent vital signs, his temperature is 97.4 degrees, blood pressure 131/63, heart rate 69, respirations are 12. He is on 3 L nasal cannula. Last recorded saturation 100%. He has had 990 in and he has had 275 out. The patient is currently on 1 L positive in the last 48 hours. LABORATORY DATA: This a.m. sodium 144, potassium 3.3, chloride 102, CO2 29, BUN 48, creatinine 2.6. Glucose 112. Anion gap 13, calcium 8.4. Previous hemoglobin of 9 on the . PHYSICAL EXAMINATION: General: This is an 86-year-old male. He is resting in bed. Head of the bed is elevated. He is in no acute distress, though he does remain tachypneic. HEENT: Normocephalic, atraumatic. Conjunctivae pale. He has Pupils equal, round, and reactive to light. Mucous membranes dry. Neck: Supple. Trachea midline. Positive jugular venous distention. Cardiovascular: Regular rate and rhythm. He has a systolic murmur. No gallop. Lungs: Poor air exchange. Diminished breath sounds. Bibasilar crackles. Remains on O2. Equal excursion. Abdomen: Large, round, soft, nontender. Positive bowel sounds. Hypoactive. Extremities: Continues with woody edema to the chest and upper extremities; otherwise, he has 4+ pitting edema to both upper and lower extremities. Genitourinary: Apple catheter is in place. He has had adequate urine out, though it has been dropping off in the last 24 hours. He is now in positive range. Neurological: Alert and oriented x3. ASSESSMENT AND PLAN: 1. Fluid volume overload. Again, this remains multifactorial. We have not been successful in assisting the patient with his labored breathing. He continues with 4+ lower extremity edema. We have continued to give him Lasix of 120 mg b.i.d. with minimal effect. We have discussed with the primary care team that possibility of using hemodialysis with possible peritoneal dialysis for discharge to assist patient with fluid volume overload. We will talk with the patient's family, allow them some discussion. We have discussed this with the patient himself and he is agreeable. 2. Electrolytes. Patient has mild hypokalemia. We will replace, if not ordered. Acid-base balance. This is slowly corrected. 3. Anemia. This continues stable, with no labs in the last several days. We will order a CBC and a renal for the morning. I would like to thank you for allowing us to follow with this patient. Seen, data reviewed, discussed with Miranda Figueroa on 02/18/17. I agree with the above assessment and plan of care. rg Dictated by TERESSA Marino for Rayo English MD [facility]
[2017-02-18 10:01] LABS: CALCIUM 8.7 mg/dL (8.8-10.2); POTASSIUM 3.7 mmol/L (3.5-5.1)
[2017-02-18] MEDS: NS 500 ML IV SCH (17:45)
--- NOTE | 2017-02-18 18:09 | PROGRESS NOTE ---
DATE: 02/18/2017 SUBJECTIVE: Patient continues with some perception of shortness of breath. There has been no chest pain. OBJECTIVE: Vital Signs: Blood pressure 132/56, heart rate 81 and regular. Jugular venous distention is indistinct, but appears elevated. Chest: Auscultation reveals diminished breath sounds in the bases bilaterally. Cardiac: A regular rate and rhythm with grade 2/6 systolic murmur at the right upper sternal border. There is also a grade 1-2/6 systolic murmur at the left sternal apex. Extremities: Demonstrate 4+ pitting edema/anasarca. LABORATORY DATA: BUN 55, creatinine 3.3, which is elevated compared to previous values. IMPRESSION: 1. Acute on chronic biventricular heart failure of mixed etiology with diastolic left ventricular failure and right ventricular systolic failure and associated anasarca. Previous echocardiography indicated left ventricular hypertrophy with wall thickness 1.4 cm reported, while ECG demonstrates low voltage QRS. Cannot exclude possible cardiac amyloid. 2. Chronic atrial fibrillation. 3. Severe chronic obstructive pulmonary disease requiring home oxygen. 4. Mild coronary atherosclerosis by previous coronary angiography. 5. Chronic kidney disease with acute renal failure. 6. Hyperlipidemia. 7. Significant anemia. 8. Atherosclerotic carotid disease. RECOMMENDATIONS: 1. Continue efforts to diurese. 2. Agree with plans to pursue possible dialysis in effort to remove volume.
--- NOTE | 2017-02-18 21:32 | PALLIATIVE CARE CONSULTATION ---
DATE: 02/18/2017 REQUESTING PHYSICIAN: Dr. Skip Acharya. REASON FOR CONSULTATION: Goals of care. HISTORY OF PRESENT ILLNESS: This is an 86-year-old, male with a past medical history of congestive heart failure with cor pulmonale, mild coronary atherosclerosis, chronic atrial fibrillation, COPD requiring home O2, hypertension, hyperlipidemia, recurrent anemia and prostate hypertrophy. He was most recently admitted on 02/13/2017 after presenting to the ED with complaints of significant edema and worsening shortness of breath. Despite increases in his diuretic dosages, he continues to have 4+ extremity edema. He does complain of shortness of breath. Currently, his children are at the bedside. The palliative care team has been consulted to assist with goals of care. REVIEW OF SYSTEMS: Twelve point review of system has been conducted and otherwise negative except those mentioned in the HPI. PAST MEDICAL HISTORY: See HPI. SOCIAL HISTORY: Prior to this admission, he lived at home. His family is very attentive to his care and he does have a hired sitter that helps with his activities of daily living. Alcohol, tobacco and drug use have been denied. FAMILY HISTORY: None pertinent. PHYSICAL EXAMINATION: General: This is an 86-year-old male who does not appear to be in any acute distress. HEENT: Atraumatic, normocephalic. Neck: Trachea is midline. Positive JVD. Cardiovascular: Regular rate and rhythm. Pulmonary: Lung sounds are diminished with crackles to bilateral bases. Abdomen: Soft, obese, bowel sounds are active. Extremities: 4+ pitting edema to bilateral upper and lower extremities. Neurologic: Alert and oriented x3. IMPRESSION: This is an 86-year-old, male with a past medical history as listed above in the HPI. The palliative care team was consulted to assist with goals of care. The family states that they are under the impression that Mr. Hutchison may require dialysis to help with his fluid volume overload. The patient and family have discussed this and wish to proceed with dialysis when needed. We did discuss advanced directive and power of state attorney. The patient does not have either legal document, but states that he would like his children to make all of his medical decisions in the event that he is unable. A power of state attorney and advanced directive form has been given to the patient and family to complete. Mr. Hutchison is a full code at this time. His palliative performance scale appears to be 30%. The palliative care team will continue to follow as needed. Thank you for this consultation. Dictated by TERESSA Malone for Peter Gallagher MD
[2017-02-19] MEDS: ALBUTEROL NEB INH SCH ×4 (03:37→20:43)
[2017-02-19 04:59] LABS: MANUAL DIFF NEEDED? NO
--- NOTE | 2017-02-19 05:01 | CONSULTATION ---
DATE OF CONSULTATION: 02/18/2017 Mr. Nik Hutchison is an 86-year-old white male in our CICU admitted on 02/13/2017 through the emergency department with heart failure, chronic atrial fibrillation, and acute on chronic renal failure. He has being seen by our lunch counter manager and also paper bag press operator, and we were asked by nephrology. I was asked to place access for dialysis because of fluid volume overload. PHYSICAL EXAMINATION: General Appearance: On exam, Mr. Hutchison is an elderly black male, who is awake, cooperative. He is having some shortness of breath. He is on nasal cannula O2. HEENT: He wears glasses. No jaundice. Cardiovascular: His heart has an irregular rate. Lungs: Lungs have crackles with inspiration. Abdomen: Abdomen is edematous, but not tender. He had no costovertebral tenderness. Rectal exam: Was not performed. Extremities: He does have palpable femoral pulses. He does have peripheral edema. He has no focal deficits. IMPRESSION: 1. Heart failure with fluid overload. 2. Acute on chronic renal failure. Need for dialysis to remove fluid. PLAN: The family is unsure of how the dialyze the patient, on whether they want to do peritoneal dialysis. His abdomen has too much soft tissue fluid to consider PD catheter at this time. He will neither need a Vas-Cath or PermCath, and we will plan to do this tomorrow as the family discusses dialysis.
[2017-02-19 05:05] LABS: BASO% 0.6 % (0.0-0.8); EOS# 0.34 X1000 (0.0-0.7); EOS% 7.3 % (0.0-10.0); HEMATOCRIT 25.8 % (42.0-52.0); HEMOGLOBIN 8.2 g/dL (14.0-18.0); LYMPH# 0.29 X1000 (1.2-3.4); LYMPH% 6.2 % (20.5-51.1); MCH 29.7 PG (27-31); MCHC 31.8 g/dL (33-37); MCV 93.5 FL (81-99); MONO# 0.53 X1000 (0.11-0.59); MONO% 11.3 % (1.7-9.3); MPV 13.8 FL (7.4-10.4); NEUT% 74.6 % (42.2-75.2); PLT 78 X1000 (130-400); RBC 2.76 XMIL (4.7-6.1)
[2017-02-19] MEDS: PRILOSEC PO SCH (06:05)
[2017-02-19] MEDS ORDERED: HEPARIN IV PRN (07:04)
[2017-02-19] MEDS ORDERED: TIGHT: 0.2 ML/HR MISC PRN (07:04)
[2017-02-19] MEDS ORDERED: NS 2,000 ML MISC PRN (07:04)
[2017-02-19] MEDS: APRESOLINE PO SCH ×3 (08:57→20:02)
[2017-02-19] MEDS: LASIX IV SCH ×2 (08:58→20:02)
[2017-02-19] MEDS: ASPIRIN PO SCH (08:58)
[2017-02-19] MEDS: PRINIVIL PO SCH (08:58)
[2017-02-19] MEDS: FLEXERIL PO SCH (08:58)
[2017-02-19] MEDS: FLOMAX PO SCH (08:58)
[2017-02-19] MEDS: ZAROXOLYN PO SCH (08:58)
[2017-02-19] MEDS: ELIQUIS PO SCH ×2 (08:58→20:02)
[2017-02-19] MEDS: BREO ELLIPTA 200/25 MCG INH INH SCH (10:05)
[2017-02-19 11:00] LABS: POTASSIUM 4.3 mmol/L (3.5-5.1)
--- NOTE | 2017-02-19 12:07 | PROGRESS NOTE ---
DATE: 02/19/2017 SUBJECTIVE: Mr. Hutchison is resting quietly in bed. Head of the bed is elevated. He remains on oxygen. He does continue with increased work of breathing with any mild exertion. OBJECTIVE: Vital signs: His most recent vital signs, temperature 98.6 degrees , blood pressure 129/55, heart rate 77, respirations 16. He is on 3 L nasal cannula. Last recorded saturation 99%. He has had 480 in, 650 out. Labs: His renal panel is still pending. His white count is 4.67, hemoglobin 8.2, hematocrit 25.8, with a platelet count of 78,000. PHYSICAL EXAMINATION: This is an 86-year-old male. He is currently resting in bed. Head of the bed is elevated. He is in no acute distress. He does tachypneic.Skin: Warm and dry. HEENT: Normocephalic, atraumatic. Conjunctivae pale. YVONNE. Mucous membranes are dry. Neck: Supple. Trachea midline. Positive JVD. Cardiovascular: Regular rate and rhythm. Soft systolic murmur. No gallop. Lungs: Clear to auscultation anterior with bibasilar crackles posterior. Remains on O2. Equal excursion. Abdomen: Large, round, soft, nontender. Positive bowel sounds, hypo as noted. Extremities: Continues with woody edema to the upper chest and lower extremities. He has 4+ pitting to upper and lower extremities distally. Genitourinary: Apple catheter is in place with adequate urine out. Neurological: Alert and oriented x3. ASSESSMENT AND PLAN: 1. Fluid volume overload. This does remain multifactorial secondary to patient being greater then 40 pounds above his last dry weight 2 months ago. We have requested Dr. Hathaway to place a hemodialysis catheter and a peritoneal dialysis catheter in regards with hemodialysis to attempt to pull approximately 40-50 pounds of fluid during this week and possibly into next week with the hopes of discharge with a peritoneal catheter to assist with extra fluid volume overload to encourage keeping the patient out of the hospital. It is been indicated that the peritoneal catheter is not able to be accessed at this time. We await his hemodialysis catheter. 2. Electrolytes and acid-base balance. These are pending, though these have been stable. 3. Anemia. This remains stable but low. I would like to thank you for allowing us to follow with this patient. Seen, data reviewed, discussed with Miranda Figueroa on 02/19/17. I agree with the above assessment and plan of care. rg Dictated by TERESSA Marino for Rayo English MD [facility]
--- NOTE | 2017-02-19 12:41 | PROGRESS NOTE ---
DATE: 02/19/2017 SUBJECTIVE: He just woke up. He says his breathing is about the same. He cannot tell if the fluid has gone down at all. We are planning on putting a Vas-Cath in and planning hemodialysis today. He has a right IJ catheter right now. OBJECTIVE: Vital signs: Temp 98.7 degrees, pulse 87, respirations 20, blood pressure 124/54. HEENT: Pupils are equal and round. CVP is about 9 cm water pressure. Lungs: Clear anterolateral. Cardiovascular: Regular rhythm and rate without murmur or S3. Abdomen: Soft. Skin: Warm and dry. Extremities: He has got 2 to 3+ pitting edema in his arms and through his waist down. His legs have diminished in their swelling. LAB: White count 4,670, hematocrit 25, platelet count 78,000. Sodium 143, potassium 3.7, chloride 100, bicarb 32, BUN 33, creatinine 3.3. ASSESSMENT AND PLAN: 1. Anasarca. Not much success with diuresis. We may have gotten 4 or 5 L off since this last week. So we will try hemofiltration. The plan is to start dialyzing maybe this afternoon. Put in a Vas-Cath or Perma-Cath. I think they are also thinking about peritoneal dialysis down the road. 2. His electrolytes look okay. Creatinine is going up . 3. Chronic atrial fibrillation. Rate controlled. 4. Severe chronic obstructive pulmonary disease requiring O2. 5. Coronary artery disease. 6. Biventricular failure, predominantly right ventricular failure. 7. Peripheral vascular disease. 8. In looking over his orders, I do not see any change at this point. Still getting Lasix 120 mg q.12, Apresoline 100 mg p.o. t.i.d., Zaroxolyn 5 mg daily, aspirin 81 mg a day, Prinivil 20 mg daily, Prilosec 20 mg a day, Flomax 0.4 mg a day, Eliquis 2.5 mg b.i.d., fluticasone inhaler, tramadol p.r.n. pain.
[2017-02-19] MEDS: CHLORASEPTIC SPRAY MT PRN (14:42)
[2017-02-19] MEDS ORDERED: HEPARIN ONE (15:37)
[2017-02-19] MEDS ORDERED: NS 250 ML ONE (15:37)
[2017-02-19] MEDS ORDERED: XYLOCAINE 1%/EPI 1:100,000 ONE (15:37)
[2017-02-19] MEDS ORDERED: KEFZOL 1 GM/D5W 50 ML ONE (15:53)
[2017-02-19] MEDS ORDERED: CLAVE SECONDARY SET 11953 ONE (15:53)
--- NOTE | 2017-02-19 16:56 | Diag Imaging Result Document ---
PROCEDURE NAME: OPERATIVE CHOLANGIOGRAM - 02/19/2017 INTRAOPERATIVE IMAGES OF RIGHT INTERNAL JUGULAR PORT PLACEMENT: FINDINGS: There is a catheter which is projected over the medial portion of the clavicle. No contrast was administered. IMPRESSION: Intraoperative images as described.
[2017-02-19] MEDS ORDERED: 1/2 NS 500 ML ONE (17:10)
[2017-02-19] MEDS ORDERED: EXTENSION SET 32 IN 4522 ONE (17:10)
[2017-02-19] MEDS ORDERED: PIGGYBACK SET 7393 ONE (17:10)
--- NOTE | 2017-02-19 18:19 | OPERATIVE NOTE ---
PROCEDURE DATE: 02/19/2017 PREOPERATIVE DIAGNOSES: 1. Congestive heart failure. 2. Acute renal failure. 3. Fluid overload. POSTOPERATIVE DIAGNOSES: 1. Congestive heart failure. 2. Acute renal failure. 3. Fluid overload. PRINCIPAL PROCEDURE: Right internal jugular Vas-Cath using fluoroscopy and ultrasound. SURGEON: Natali Hathaway MD HRIS DEVELOPER: vika Evans. ANESTHESIA: Local. ESTIMATED BLOOD LOSS: 10 mL. DRAINS: None. INDICATIONS: Mr. Nik Hutchison is an 86-year-old black male who has anasarca, fluid overload, congestive heart failure and now renal failure and we are asked to place access for dialysis. DESCRIPTION OF PROCEDURE: The patient was brought to the operating room. He was placed on our OR table and placed in the reverse Trendelenburg position and was still short of breath. We had to sit him up somewhat. He had obvious jugular venous distention. His right neck was prepped and draped in a sterile field. He received Ancef prophylactically. We used local anesthetic at our incision site. We used ultrasound to identify the right internal jugular vein and with ultrasound guidance we directed an 18-gauge needle into the internal jugular vein and a guidewire was placed through this needle into the right side of the heart. We checked the position of the guidewire using fluoroscopy. We removed 18-gauge needle. We placed a dilator over the guidewire and then we placed a 13.5 cm in length Vas-Cath over the guidewire into the superior vena cava. The guidewire was removed. Both ports were functioning and were flushed with heparin saline. The catheter was secured to the skin with two 2-0 nylon stitches. Caps and dressings were applied. He tolerated the procedure well. This was a dangerous procedure because of his venous hypertension and his shortness of breath. Plans are for him to go to the recovery room and then return to his floor, resume his orders and I notified the reporter that the Vas-Cath was placed.
[2017-02-20] MEDS: ALBUTEROL NEB INH SCH ×5 (03:32→22:52)
[2017-02-20] MEDS: PRILOSEC PO SCH ×2 (05:49→06:15)
[2017-02-20 06:29] LABS: ALBUMIN 3.2 g/dL (3.5-5.0); CALCIUM 8.9 mg/dL (8.8-10.2); POTASSIUM 4.2 mmol/L (3.5-5.1)
[2017-02-20] MEDS ORDERED: HEPARIN ONE (07:43)
[2017-02-20] MEDS ORDERED: NS 2,000 ML ONE (07:43)
--- NOTE | 2017-02-20 10:52 | PROGRESS NOTE ---
DATE: 02/20/2017 SUBJECTIVE: He had his Vas-Cath placed yesterday and planning for dialysis this morning. He feels about the same. No real shortness of breath. OBJECTIVE: Vital signs: Temp 98.1, pulse 78, respirations 16, blood pressure 139/72. HEENT: Pupils are equal, round. Neck: CVP less than 6 cm. Lungs: Clear in all lung ryan. Cardiovascular: Regular rhythm and rate without murmur or S3. Abdomen: Soft. Skin: Warm and dry. Urine output 900 mL. LAB: White count 4670, hematocrit 25, platelet count 78,000. Sodium 142, potassium 4.2, chloride 99, BUN 69, creatinine 4.2. ASSESSMENT AND PLAN: 1. He has got 2+ swelling in his arms and waist down, scrotum anasarca, and you can just continue trying to get some fluid off and will pursue dialysis this morning. 2. Electrolytes are stable. 3. Chronic atrial fibrillation. Rate is controlled. 4. Chronic obstructive pulmonary disease on O2. 5. History of coronary artery disease. 6. Biventricular failure. Continue present medications. Note that serum creatinine has gone up to 4.2. Hemoglobin is at 8.2.
--- NOTE | 2017-02-20 14:52 | PROGRESS NOTE ---
DATE: 02/20/2017 SUBJECTIVE: Mr. Hutchison is resting quietly in bed. Head of the bed is elevated. He continues on O2. He remains slightly tachypneic. He denies chest pain. OBJECTIVE: Vital Signs: His most recent vital signs are temperature 98.7 degrees, blood pressure 146/72, heart rate 66, respirations 20. He is on 3 L nasal cannula. Last recorded saturation 94%. He has had 245 in. He has had 1150 out per Apple catheter. LABS: Sodium 142, potassium 4.2, chloride 99, CO2 31, BUN 69, creatinine 4.2, glucose 104. Anion gap is 12. Calcium 8.9, phosphorus 3.8, albumin 3.2. Previous hemoglobin 8.2. PHYSICAL EXAMINATION: General: This is an 86-year-old, male. He is resting quietly in bed. He is in modest distress secondary to kidney. Head of the bed is elevated. Skin: Warm and dry. HEENT: Normocephalic, atraumatic. Conjunctiva is pale. He has pupils equal, round, and reactive to light. Mucous membranes are moist. Neck: Supple. Trachea midline. Positive jugular venous distention. Cardiovascular: Irregular rate and rhythm. Positive systolic murmur. No gallop. Lungs: He has crackles to the posterior bases anterior. Continues on O2. Equal excursion. Abdomen: Large, round, soft, nontender. Positive bowel sounds. Genitourinary: Apple catheter is in place. Adequate urine out. Extremities: He has pitting edema from the feet all the way up into his mid-abdomen trunk area, and to the upper arms and some facial edema. Continues with anasarca. Integumentary: Patient has a woody appearance due to his increased swelling to the chest and hip area. He has a Vas-Cath to the right IJ. This is dry and intact. Neurological: Alert and oriented x3. ASSESSMENT AND PLAN: 1. Fluid volume overload. Patient continues to have multifactorial effect. We have attempted large doses of diuretic. We have bumped his creatinine, though he continues with full anasarca. Secondary to his fluid volume overload, the patient has had a Vas- Cath placed by Dr. Hathaway to the right IJ. We will plan for dialysis today. We will even on a 4K bath. We will leave it on for 6 hours. We will attempt to pull 4-6 L of ultrafiltration as tolerated. We will attempt daily dialysis to assist with his fluid volume. We would prefer to pull anywhere from 40-50 pounds off in the next week or so as tolerated by patient and pressures. There is an exit discharge plan, possible placement of a PD catheter for discharge, with continued fluid maintenance with family's assistance with peritoneal dialysis. 2. Electrolytes and acid-base balance. These remain stable. 3. Anemia. This remains low, but stable. I would like to thank you for allowing us to follow with this patient. Seen, data reviewed, discussed with Miranda Figueroa on 02/20/17. I agree with the above assessment and plan of care. rg Dictated by TERESSA Marino for Rayo English MD [facility]PITALLukasz
[2017-02-20] MEDS: BREO ELLIPTA 200/25 MCG INH INH SCH (15:46)
[2017-02-20] MEDS: APRESOLINE PO SCH ×3 (16:16→20:03)
[2017-02-20] MEDS: ASPIRIN PO SCH (16:25)
[2017-02-20] MEDS: ELIQUIS PO SCH ×2 (16:26→20:03)
[2017-02-20] MEDS: ZAROXOLYN PO SCH (16:26)
[2017-02-20] MEDS: FLEXERIL PO SCH (16:26)
[2017-02-20] MEDS: FLOMAX PO SCH (16:26)
[2017-02-20] MEDS: PRINIVIL PO SCH (16:26)
[2017-02-20] MEDS: LASIX IV SCH (16:27)
[2017-02-21 05:28] LABS: ALBUMIN 3.4 g/dL (3.5-5.0); CALCIUM 8.8 mg/dL (8.8-10.2); POTASSIUM 4.4 mmol/L (3.5-5.1)
[2017-02-21] MEDS: LASIX IV SCH ×2 (05:47→16:28)
[2017-02-21] MEDS: PRILOSEC PO SCH ×2 (05:47→06:03)
[2017-02-21] MEDS: ALBUTEROL NEB INH SCH ×4 (06:52→21:47)
[2017-02-21] MEDS ORDERED: NS 2,000 ML ONE (07:13)
[2017-02-21] MEDS ORDERED: HEPARIN ONE (07:13)
[2017-02-21] MEDS ORDERED: HEPARIN IV PRN (07:18)
[2017-02-21] MEDS ORDERED: NS 2,000 ML MISC PRN (07:18)
[2017-02-21] MEDS ORDERED: TIGHT: 0.2 ML/HR MISC PRN (07:18)
--- NOTE | 2017-02-21 09:58 | PROGRESS NOTE ---
DATE: 02/21/2017 SUBJECTIVE: The patient doing better. Taking some volume off and coming back for dialysis this morning. OBJECTIVE: Vital signs: Temperature 98.8 degrees, pulse 75, respirations 18, blood pressure 114/53 pounds. HEENT: Pupils are equal and round. Neck: CVP less than 6 cm. Lungs: Clear in all lung ryan. Cardiovascular: Regular rhythm and rate without murmur or S3. Abdomen: Soft. Skin: Warm and dry. URINE OUTPUT: They took off over a L yesterday and another 1375. HIS LABORATORIES: Labs from this morning revealed chemistry: Sodium 146, potassium 4.4, chloride 100, bicarb 32, BUN 70, creatinine 3.9, albumin 3.4. ASSESSMENT AND PLAN: 1. Anasarca/volume overload. Continues to be multi-factorial. Continue to try and diurese, hemofiltration making progress. Vas-Cath has been placed. Continue dialysis. 2. Electrolytes and acid base looks good. 3. Anemia, stable. 4. Chronic atrial fibrillation, rate is controlled. 5. Chronic obstructive pulmonary disease on O2. 6. History of coronary artery disease. 7. Biventricular dysfunction. Reviewed the orders from the last and do not see any change right now. He is on Lasix 120 mg IV q.12 hours, Apresoline 100 mg p.o. t.i.d., Zaroxolyn 5 mg a day, aspirin 81 mg a day, Prinivil 20 mg daily, Prilosec 20 mg a day, Flomax 0.4 mg a day, Apixaban 2.5 mg b.i.d., fluticasone inhaler. Continue present regimen.
--- NOTE | 2017-02-21 11:12 | PROGRESS NOTE ---
DATE: 02/21/2017 SUBJECTIVE: Mr. Hutchison is sitting up in bed. He has just recently lost his IV to the right IJ. His Vas-Cath remains intact. He denies chest pain. States his breathing is a little bit better. OBJECTIVE: His most recent vital signs, his temperature is 97.8 degrees, blood pressure 114/53, heart rate 75, respirations 18. He is on 2 L nasal cannula. Last recorded saturation is 100%. He has had 920 in. He has had 9650 out with 7.5 L off of dialysis yesterday. LABORATORIES: His most recent labs, sodium 146, potassium 4.4, chloride 100, CO2 32, BUN 70, creatinine 3.9 glucose 105. Anion gap 14, calcium 8.8, phosphorus 3.7, albumin 3.4. His hemoglobin is 8.2, last collected on the . PHYSICAL EXAM: This is an 86-year-old, male. He is currently resting in bed. Head of the bed is elevated. He remains on O2. Skin: Warm and dry. HEENT: Normocephalic, atraumatic. Conjunctivae pale. He has YVONNE. Mucous membranes are moist. Neck : Supple. Trachea midline. Unable to determine JVD due to jugular venous catheter Vas- Cath on the right. Cardiovascular: Irregular rate and rhythm still. Continues with systolic murmur. No gallop. Lungs: Continue with crackles bilateral to the posterior bases. Continues on O2. Equal excursion. Abdomen: Large, round, soft, nontender. Positive bowel sounds. Genitourinary: Apple catheter is in place with adequate urine out. Extremities: Continue with 3 to 4+ lower extremity edema and upper extremity edema. His facial edema has improved today. His upper extremity edema to his hands has lessened. He does continue with anasarca. Integumentary: He has a woody appearance again to the upper chest wall and to his abdomen and lower extremity. These are dry and intact. No clubbing or cyanosis. Neurological: He is alert and oriented x3. ASSESSMENT AND PLAN: 1. Fluid volume overload. Patient continues with multifactorial effect. He was dialyzed yesterday for 6 hours week where we got 7.5 L pull on him. He tolerated this well. We have planned dialysis daily during this week. We will place him on a 4 K bath. He is to dialyze for 6 hours. Again we will attempt to pull 6-8 L of ultrafiltration to assist with his fluid volume overload in an attempt to decrease patient by 40-50 pounds in the next week. 2. Electrolytes and acid-base balance. These remain stable. 3. Anemia. This is low. It has not been repeated since the . I would like to thank you for allowing us to follow with this patient. Seen, data reviewed, discussed with Miranda Figueroa on 02/21/17. I agree with the above assessment and plan of care. rg Dictated by TERESSA Marino for Rayo English MD [facility]
[2017-02-21 11:34] LABS: HEPATITIS PROFILE ACUTE SEE COMMENTS (())
[2017-02-21] MEDS: FLOMAX PO SCH (14:21)
[2017-02-21] MEDS: FLEXERIL PO SCH (14:21)
[2017-02-21] MEDS: ZAROXOLYN PO SCH (14:21)
[2017-02-21] MEDS: ASPIRIN PO SCH (14:21)
[2017-02-21] MEDS: ELIQUIS PO SCH ×2 (14:21→21:45)
[2017-02-21] MEDS: APRESOLINE PO SCH ×3 (14:27→21:45)
[2017-02-21] MEDS: ULTRAM PO PRN (14:28)
[2017-02-21] MEDS: PRINIVIL PO SCH (14:29)
[2017-02-21] MEDS: BREO ELLIPTA 200/25 MCG INH INH SCH (15:15)
[2017-02-22] MEDS: ALBUTEROL NEB INH SCH ×6 (02:53→21:35)
[2017-02-22 05:41] LABS: ALBUMIN 3.1 g/dL (3.5-5.0); CALCIUM 8.5 mg/dL (8.8-10.2); POTASSIUM 4.2 mmol/L (3.5-5.1)
[2017-02-22] MEDS: LASIX IV SCH (05:54)
[2017-02-22] MEDS: PRILOSEC PO SCH ×2 (05:54→06:27)
[2017-02-22] MEDS: ULTRAM PO PRN ×2 (05:54→17:03)
[2017-02-22] MEDS ORDERED: HEPARIN IV PRN (08:46)
[2017-02-22] MEDS ORDERED: TIGHT: 0.2 ML/HR MISC PRN (08:46)
[2017-02-22] MEDS ORDERED: NS 2,000 ML MISC PRN (08:46)
--- NOTE | 2017-02-22 09:44 | PROGRESS NOTE ---
DATE: 02/22/2017 SUBJECTIVE: Mr. Hutchison had a good night. He is breathing comfortably. He can tell that a lot of the fluid has come off. He has a marked decrease of swelling in his arms, his scrotum and his legs. Remains afebrile. OBJECTIVE: His temperature is 97.9, pulse 80, respirations 18, blood pressure 102/52. Pupils are equal and round. CVP less than 6 cm. Lungs are clear in all lung ryan. Cardiovascular: Regular rhythm and rate without murmur or S3. Abdomen is soft. Skin is warm and dry. We dialyzed off a good 4.5 L yesterday. DIAGNOSTIC DATA: His labs were reviewed from 02/19/2017. Chemistries from today show sodium 141, potassium 4.2, chloride 101, BUN is 37, creatinine has come down to 2.4. ASSESSMENT AND PLAN: 1. Volume overload, anasarca, multifactorial. Continue to dialyze off fluid. Making good progress. 2. Electrolytes. Acid base balance looks good. 3. Anemia, stable. 4. Nutrition is good. 5. Chronic atrial fibrillation, rate controlled. 6. Chronic obstructive pulmonary disease, on O2. Respiratory status is good. 7. History of coronary artery disease. 8. Biventricular dysfunction. Continue present orders. He will need to remain in the hospital for several more days to continue to get fluid off. He is still on Lasix 120 mg q.12, Apresoline 100 mg p.o. t.i.d., Zaroxolyn 5 mg a day, aspirin 81 mg a day, Prinivil 20 mg a day, Prilosec 20 mg daily, tamsulosin 0.4 mg daily, Flexeril 10 mg daily, Eliquis 2.5 mg b.i.d., fluticasone 1 puff daily, getting albuterol treatments.
[2017-02-22] MEDS: BREO ELLIPTA 200/25 MCG INH INH SCH (10:12)
[2017-02-22] MEDS: ZAROXOLYN PO SCH (10:45)
[2017-02-22] MEDS: FLEXERIL PO SCH (10:45)
[2017-02-22] MEDS: ASPIRIN PO SCH (10:45)
[2017-02-22] MEDS: ELIQUIS PO SCH ×2 (10:45→21:11)
[2017-02-22] MEDS: APRESOLINE PO SCH ×3 (10:46→21:11)
[2017-02-22] MEDS: FLOMAX PO SCH (10:46)
[2017-02-22] MEDS: PRINIVIL PO SCH (10:46)
[2017-02-22] MEDS ORDERED: NS 2,000 ML ONE (11:41)
[2017-02-22] MEDS ORDERED: HEPARIN ONE (11:41)
[2017-02-22] MEDS ORDERED: EPOGEN SUBQ ONE (16:21)
--- NOTE | 2017-02-22 16:44 | PROGRESS NOTE ---
DATE: 02/22/2017 SUBJECTIVE: He is steadily improving with regular dialysis treatments. Shortness of breath is really minimal. OBJECTIVE: Vital Signs: Blood pressure 102/52, heart rate 80, respiration 18, afebrile. Intake 400 mL. Output 4.9 L with 1 L of urine output. PHYSICAL EXAM: General: Elderly man lying in bed. No distress on room air. Skin: Warm and dry. Conjunctivae are pink. Neck: Neck veins are still distended. Heart: Regular with systolic murmur. Lungs: Have equal breath sounds. No crackles. Extremities: Have 3+ edema but the edema is resolved off the abdominal wall. LABORATORY DATA: Sodium 141, potassium 4.2, chloride 101, bicarbonate 31, BUN 3.7, creatinine 2.4, albumin 3.1. Hemoglobin 8.2. IMPRESSION: 1. Volume overload secondary to kidney disease and biventricular heart failure. Progressive improvement in his symptoms. Continue daily hemodialysis. We will plan for tunneled peritoneal catheter placed beginning of next week if possible. 2. Electrolytes/acid base in target. 3. Anemia: Will dose with erythropoietin and check iron stores today.
--- NOTE | 2017-02-22 20:28 | PROGRESS NOTE ---
DATE: 02/22/2017 SUBJECTIVE: Patient continues without dyspnea. He is undergoing hemodialysis with volume removal in addition to diuresis. OBJECTIVE: Vital Signs: Blood pressure 113/50, heart rate 69 and regular. Neck: Jugular distention is not appreciated. Chest: Clear to auscultation. Cardiac Exam: Reveals a regular rate and rhythm without appreciable murmur, gallop. There is edema in all 4 extremities of approximately 3+ severity which is clearly decreasing with current management. LABORATORY DATA: Includes a BUN of 37, creatinine 2.4, potassium 4.2. IMPRESSION: 1. Acute on chronic biventricular heart failure of mixed etiology with diastolic left ventricular failure and right ventricular systolic failure and associated anasarca. Impaired renal function also contributing. Prior echocardiography indicated left ventricular hypertrophy with wall thickness 1.4 cm reported while ECG demonstrates low voltage. Cannot exclude possible cardiac amyloid. 2. Chronic kidney disease. 3. Chronic atrial fibrillation. 4. Chronic obstructive pulmonary disease. 5. Hyperlipidemia. 6. Anemia. RECOMMENDATIONS: 1. Continue efforts to diurese and remove volume with hemodialysis. 2. Conservative cardiovascular management appears most appropriate. Will see further only on an as needed basis.
[2017-02-23] MEDS: ALBUTEROL NEB INH SCH ×5 (02:42→20:30)
[2017-02-23] MEDS: CALMOSEPTINE OINTMENT TOP PRN (05:43)
[2017-02-23 05:44] LABS: IRON SATURATION 20 %; TIBC 127 ug/dL; TOTAL IRON 26 ug/dL (53-167); UNBOUND IRON 101 ug/dL (112-346)
[2017-02-23 06:07] LABS: FERRITIN 384 ng/mL (30-400)
[2017-02-23] MEDS: PRILOSEC PO SCH (06:17)
[2017-02-23] MEDS ORDERED: TIGHT: 0.2 ML/HR MISC PRN (08:29)
[2017-02-23] MEDS ORDERED: NS 2,000 ML MISC PRN (08:29)
[2017-02-23] MEDS ORDERED: HEPARIN IV PRN (08:29)
[2017-02-23] MEDS: BREO ELLIPTA 200/25 MCG INH INH SCH (10:19)
--- NOTE | 2017-02-23 11:08 | PROGRESS NOTE ---
DATE: 02/23/2017 SUBJECTIVE: He is awake up eating breakfast. He says he feels good and had a good night. Breathing comfortably. OBJECTIVE: Vital signs: Temperature 98.1 degrees, pulse 74, respirations 20, blood pressure 141/54. HEENT: Pupils are equal, round, CVP appears to be 8 cm from angle of Toño. Respiratory: Lungs are clear anterolateral. Cardiovascular: Regular rhythm and rate without murmur or S3. Abdomen: Soft. Skin: Warm and dry. Decreased edema in his arms and scrotum and legs noted. They got count 6.5 L off yesterday. LABORATORY DATA: Reviewed CBC from the , hematocrit 25, hemoglobin 8.2. Appears to be stable. Electrolytes from yesterday, sodium 141, potassium 4.2, chloride 101, BUN 37, creatinine 2.4, so it is coming down nicely. ASSESSMENT AND PLAN: 1. Volume overload with anasarca multifactorial but predominantly right-sided heart failure with increase in his pressure. Continued hemodialysis. 2. Electrolytes. They are on balance. 3. Anemia, watching, stable. If hemoglobin gets below 7, we will probably need to transfuse. 4. Nutrition is good. Good p.o. intake. 5. Chronic atrial fib, rate controlled. 6. Chronic obstructive pulmonary disease on O2. 7. History of coronary artery disease. I reviewed his orders. I do not see any changes at this point.
[2017-02-23] MEDS: ULTRAM PO PRN (11:13)
[2017-02-23] MEDS ORDERED: HEPARIN ONE (11:42)
[2017-02-23] MEDS ORDERED: NS 2,000 ML ONE (11:42)
[2017-02-23] MEDS ORDERED: VENOFER 200 MG in NS 150 ML IV SCH (12:15)
--- NOTE | 2017-02-23 13:22 | PROGRESS NOTE ---
DATE: 02/23/2017 SUBJECTIVE: He agrees that he is getting progressively better. No shortness of breath today. OBJECTIVE: Vital Signs: Blood pressure 130/64, heart rate 79, respirations 17, afebrile. Intake 350 mL. Output 6.9 L. PHYSICAL EXAM: No acute distress.Skin: Warm and dry. HEENT: Conjunctivae are pink. Neck: Neck veins are not distended. Heart: Regular. Lungs: Have equal breath sounds. No crackles. Abdomen: Soft, nontender. Bowel sounds are present. Extremities: Have 3+ edema in the arms and legs but the abdominal wall edema is dramatically improved. IMPRESSION: 1. Volume overload consequent to biventricular heart failure and chronic kidney disease. Continue dialysis today with a goal of another 7-8 L ultrafiltration. Will reconsider placement of PD catheter next week under Dr. Hathaway's care. 2. Electrolytes/acid base/hypertension/anemia. All stable. His hemoglobin is below our target and I dosed him with erythropoietin on yesterday. We will add IV iron.
[2017-02-23] MEDS: APRESOLINE PO SCH ×3 (16:43→21:08)
[2017-02-23] MEDS: VENOFER 200 MG in NS 150 ML IV SCH (17:07)
[2017-02-23] MEDS: ASPIRIN PO SCH (17:08)
[2017-02-23] MEDS: FOLIC ACID PO SCH (17:08)
[2017-02-23] MEDS: PRINIVIL PO SCH (17:08)
[2017-02-23] MEDS: FLEXERIL PO SCH (17:08)
[2017-02-23] MEDS: FLOMAX PO SCH (17:08)
[2017-02-23] MEDS: ELIQUIS PO SCH ×2 (17:08→21:08)
[2017-02-24] MEDS: ALBUTEROL NEB INH SCH ×6 (02:47→21:09)
[2017-02-24] MEDS: PRILOSEC PO SCH (06:45)
[2017-02-24] MEDS: CALMOSEPTINE OINTMENT TOP PRN (06:46)
[2017-02-24 06:55] LABS: ALBUMIN 3.2 g/dL (3.5-5.0); CALCIUM 8.7 mg/dL (8.8-10.2); POTASSIUM 5.1 mmol/L (3.5-5.1)
--- NOTE | 2017-02-24 08:27 | PROGRESS NOTE ---
DATE: 02/24/2017 SUBJECTIVE: Mr. Hutchison's only complaint is that his heels right around both Achilles tendons. It is a little sore. There is no skin breakdown there. Breathing comfortably. Eating well. PHYSICAL EXAMINATION: Vital Signs: Temperature 98.6 degrees, pulse 80, respirations 20, blood pressure 125/65. HEENT: Pupils are equal and round. CVP less than 6 cm. Lungs: Clear in all lung ryan. Cardiovascular Examination: Regular rhythm and rate without murmur or S3. Abdomen: Soft. Skin: Warm and dry. Is and Os: Urine output over 8000 mL yesterday, was dialyzed. LAB: Reviewed from yesterday. The swelling has gone down in his legs, arms, and scrotum. ASSESSMENT AND PLAN: 1. Volume overload, anasarca, biventricular failure. Making progress with his fluid and ultrafiltrate. Clinically, remarkably improved. 2. Acid-base, electrolytes, anemia. Stable. 3. History of chronic obstructive pulmonary disease, on oxygen. 4. Nutrition. Good. 5. History of coronary artery disease. Continue present measures.
[2017-02-24] MEDS: FLEXERIL PO SCH (09:29)
[2017-02-24] MEDS: ELIQUIS PO SCH ×2 (09:29→21:12)
[2017-02-24] MEDS: PRINIVIL PO SCH (09:29)
[2017-02-24] MEDS: APRESOLINE PO SCH ×3 (09:29→21:12)
[2017-02-24] MEDS: ASPIRIN PO SCH (09:30)
[2017-02-24] MEDS: FOLIC ACID PO SCH (09:30)
[2017-02-24] MEDS: FLOMAX PO SCH (09:30)
[2017-02-24] MEDS: BREO ELLIPTA 200/25 MCG INH INH SCH (09:34)
[2017-02-24] MEDS: VENOFER 200 MG in NS 150 ML IV SCH (12:03)
[2017-02-24] MEDS ORDERED: VENOFER 200 MG in NS 150 ML IV SCH (12:15)
[2017-02-24] MEDS: ULTRAM PO PRN (17:10)
[2017-02-25] MEDS: ALBUTEROL NEB INH SCH ×6 (02:37→23:11)
[2017-02-25 06:04] LABS: CALCIUM 8.8 mg/dL (8.8-10.2)
[2017-02-25] MEDS: PRILOSEC PO SCH (06:41)
[2017-02-25] MEDS ORDERED: NS 2,000 ML MISC PRN (06:48)
[2017-02-25] MEDS ORDERED: HEPARIN IV PRN (06:48)
[2017-02-25] MEDS ORDERED: TIGHT: 0.2 ML/HR MISC PRN (06:48)
--- NOTE | 2017-02-25 08:57 | PROGRESS NOTE ---
DATE: 02/25/2017 SUBJECTIVE: Mr. Hutchison is feeling better every day. He still has not been out of bed, however. OBJECTIVE: Vital Signs: Blood pressure 106/46, heart rate 68, respirations 18, afebrile. Generally: He is an elderly man, chronically ill, no distress. Skin: Warm and dry. HEENT: Conjunctivae are pink. Pupils are equal. Neck: Neck veins are not visible. Heart: Regular. Lungs: Have equal breath sounds. No crackles. Abdomen: Soft and nontender. Bowel sounds present. Extremities: Have 3+ edema. No clubbing or cyanosis. Laboratory Data: Sodium 141, potassium 5, chloride 100, bicarbonate 30, BUN 54, creatinine 4. Hemoglobin not checked. IMPRESSION: Volume overload from kidney disease and heart failure. Continue daily dialysis. He is net -80 pounds thus far. We will ask Dr. Hathaway to proceed with peritoneal dialysis catheter placement. Begin physical therapy.
[2017-02-25] MEDS: ELIQUIS PO SCH ×2 (09:29→21:12)
[2017-02-25] MEDS: FLOMAX PO SCH (09:29)
[2017-02-25] MEDS: APRESOLINE PO SCH ×3 (09:29→21:12)
[2017-02-25] MEDS: FOLIC ACID PO SCH (09:29)
[2017-02-25] MEDS: PRINIVIL PO SCH (09:29)
[2017-02-25] MEDS: ASPIRIN PO SCH (09:29)
[2017-02-25] MEDS: FLEXERIL PO SCH (09:29)
--- NOTE | 2017-02-25 09:37 | PROGRESS NOTE ---
DATE: 02/25/2017 SUBJECTIVE: Awake, alert. He is reading newspaper. Ate breakfast, breathing comfortably. OBJECTIVE: Vital Signs: Temperature 98.8, pulse 68, respirations 18, blood pressure 106/46. Eyes: Pupils are equal and round. Neck: CVP less than 6 cm. Lungs: Clear in all lung ryan, anterior, lateral. Cardiovascular: Exam regular rhythm and rate without murmur or S3. Abdomen: Soft. Urine output was over 2 L. CHEMISTRY: Sodium 141, potassium 5.0, chloride 100, BUN 54, creatinine 4.0. Albumin 3.0. ASSESSMENT AND PLAN: 1. Volume overload. Kidney disease and heart failure. Continue daily dialysis. He has lost about 80 pounds. Making good progress. Swelling going down on his arms, legs and scrotum. Apple catheter still in place. 2. Underlying chronic obstructive pulmonary disease, on oxygen. 3. Acid-base, electrolytes, anemia stable. 4. Nutrition good. 5. History of coronary artery disease. Review of orders. I do not see any change at this time. He is on Apresoline 100 mg p.o. t.i.d. He is on folic acid 1 mg a day. Getting iron sucrose 200 mg q.24 hours. Prinivil 20 mg a day. Prilosec 20 mg a day. Flomax 0.4 mg a day, Flexeril 10 mg a day. Eliquis 2.5 mg b.i.d., fluticasone 1 puff inhaler daily.
[2017-02-25] MEDS ORDERED: HEPARIN ONE (09:58)
[2017-02-25] MEDS ORDERED: NS 2,000 ML ONE (09:58)
--- NOTE | 2017-02-25 14:25 | PROGRESS NOTE ---
DATE: 02/25/2017 Mr. Nik Hutchison is an 86-year-old black male who has congestive heart failure and had anasarca. He has been undergoing hemodialysis using a right internal jugular Vas-Cath which I placed with a lot of fluid being removed. Dr. English, his sign language interpreter, wants a peritoneal dialysis catheter, but when speaking with the family they are unsure about peritoneal dialysis and are not ready to consent to any catheter placement. Dr. English will have to discuss this with the patient and the family prior to proceeding with any access placement. He is on dialysis today.
[2017-02-25] MEDS: BREO ELLIPTA 200/25 MCG INH INH SCH (16:59)
[2017-02-25] MEDS: VENOFER 200 MG in NS 150 ML IV SCH (17:07)
[2017-02-25] MEDS: ULTRAM PO PRN (19:09)
[2017-02-26] MEDS: ALBUTEROL NEB INH SCH ×6 (02:50→23:51)
[2017-02-26 06:10] LABS: HEMATOCRIT 18.4 % (42.0-52.0); MCH 30.9 PG (27-31); MCHC 31.5 g/dL (33-37); MCV 97.9 FL (81-99); MPV 12.5 FL (7.4-10.4); RBC 1.88 XMIL (4.7-6.1)
[2017-02-26 06:21] LABS: ALBUMIN 3.1 g/dL (3.5-5.0); CALCIUM 8.4 mg/dL (8.8-10.2); POTASSIUM 4.6 mmol/L (3.5-5.1)
[2017-02-26 06:21] LABS: HEMOGLOBIN 5.8 g/dL (14.0-18.0)
[2017-02-26] MEDS: PRILOSEC PO SCH (06:21)
[2017-02-26] MEDS ORDERED: NS 2,000 ML ONE (06:58)
[2017-02-26] MEDS ORDERED: HEPARIN ONE ×2 (06:58→10:06)
[2017-02-26] MEDS ORDERED: HEPARIN IV PRN (07:37)
[2017-02-26] MEDS ORDERED: TIGHT: 0.2 ML/HR MISC PRN (07:37)
[2017-02-26] MEDS ORDERED: NS 2,000 ML MISC PRN (07:37)
--- NOTE | 2017-02-26 09:27 | PROGRESS NOTE ---
DATE: 02/26/2017 SUBJECTIVE: Mr. Hutchison is doing better, breathing better. Still losing volume at a very good pace which is encouraging. His appetite is good. Bowels are moving. He states his heels are not hurting like they were when both of his Achilles were bothering him a couple of days ago. OBJECTIVE: Temperature is 97.2, pulse 60, respirations 14, blood pressure 100/39. Pupils are equal and round. CVP less than 6 cm. Lungs are clear in all lung ryan. Cardiovascular: Regular rate and rhythm without murmur or S3. He got 8 L of fluid off yesterday. DIAGNOSTIC DATA: Labs from this morning show white count 6580, hemoglobin 5.8, hematocrit 18. Chemistry shows sodium 141, potassium 4.8, chloride 100, BUN is 38, creatinine 3.3, phosphorus 2.5, calcium 8.4. ASSESSMENT AND PLAN: 1. Volume overload, kidney disease and heart failure. Continue dialysis, getting fluid off well. 2. Anemia. Hemoglobin has gone down. I suspect we will need to give him some blood. We will discuss with Dr. English. I suspect he may need to get that during dialysis. 3. Acid base status is good. 4. Nutrition is good. 5. History of coronary artery disease. 6. History of chronic obstructive pulmonary disease. 7. Our plan is to get a PD catheter for maintenance, fluid control. 8. Review of his orders. I do not see anything to change at this point. He is getting iron sucrose C 200 mg I think daily, folic acid 1 mg a day, hydralazine 100 mg t.i.d., aspirin 81 mg daily, lisinopril 20 mg daily, Prilosec 20 mg daily, Flomax 0.4 mg daily, Flexeril 10 mg daily, Eliquis 2.5 mg b.i.d., fluticasone 1 puff daily.
[2017-02-26] MEDS ORDERED: XYLOCAINE 1%/EPI 1:100,000 ONE (10:06)
[2017-02-26] MEDS ORDERED: NS 0 ML ONE (10:06)
--- NOTE | 2017-02-26 12:07 | PROGRESS NOTE ---
DATE: 02/26/2017 SUBJECTIVE: He is doing well with dialysis. His weight is coming down progressively. No shortness of breath. He has not been able to get up because he has been in dialysis so much. OBJECTIVE: Vital Signs: Blood pressure 100/39, heart rate 63, respirations 14, afebrile. His weight was 82.8 kg. His presenting weight was 124.2 kg so he has lost 42 kg since admission. General: No acute distress. Chronically ill. Neck: Neck veins are not visible. Heart: Regular. Lungs: Have equal breath sounds. No crackles. Abdomen: Soft, nontender. Bowel sounds are present. Extremities: Have 2+ edema. No clubbing or cyanosis. LABORATORY DATA: Hemoglobin 5.8. Sodium 141, potassium 4.6, chloride 101, bicarbonate 31, BUN 38, creatinine 3.3. IMPRESSION: 1. Renal failure and heart failure with severe volume overload. Progressively improving. I had a long discussion with all of his children today. He will need to go to rehab after discharge and it sounds like hemodialysis will be the best plan for the medium term. Dr. Hathaway will place a tunneled dialysis catheter and we will continue hemodialysis after discharge. 2. Hypotension. Stop hydralazine. 3. Anemia: 2 units packed red blood cells.
[2017-02-26] MEDS: BREO ELLIPTA 200/25 MCG INH INH SCH (15:01)
[2017-02-26] MEDS: ELIQUIS PO SCH ×2 (16:59→20:23)
[2017-02-26] MEDS: FOLIC ACID PO SCH (17:21)
[2017-02-26] MEDS: ASPIRIN PO SCH (17:21)
[2017-02-26] MEDS: FLOMAX PO SCH (17:21)
[2017-02-26] MEDS: FLEXERIL PO SCH (17:21)
[2017-02-26] MEDS: PRINIVIL PO SCH (17:22)
[2017-02-26] MEDS: VENOFER 200 MG in NS 150 ML IV SCH (17:22)
[2017-02-26] MEDS: APRESOLINE PO SCH (20:01)
[2017-02-27] MEDS: ALBUTEROL NEB INH SCH ×6 (02:55→21:06)
[2017-02-27] MEDS: PRILOSEC PO SCH (05:59)
[2017-02-27] MEDS ORDERED: TIGHT: 0.2 ML/HR MISC PRN (07:47)
[2017-02-27] MEDS ORDERED: HEPARIN IV PRN (07:47)
[2017-02-27] MEDS ORDERED: NS 2,000 ML MISC PRN (07:47)
[2017-02-27] MEDS ORDERED: NS 2,000 ML ONE (08:39)
--- NOTE | 2017-02-27 09:45 | PROGRESS NOTE ---
DATE: 02/27/2017 SUBJECTIVE: Mr. Hutchison has continued to improve, breathing, doing better. You can tell his swelling has gone down. He is eating well. OBJECTIVE: Vital Signs: Temperature 98.0 degrees, pulse 65, respirations 16, blood pressure 89/42. Eyes: Pupils are equal, round. Lungs: Clear in all lung ryan. Cardiovascular exam: Regular rhythm and rate without murmur or S3. Abdomen: Soft. Skin: Warm and dry. He had marked reduction in swelling in his arms and scrotum and his legs. They got off 4.5 L yesterday. LABS: Lab reviewed from yesterday note that hemoglobin was 5.8, so plan on giving some blood yesterday as well. ASSESSMENT AND PLAN: 1. Renal failure and heart failure, severe volume overload, progressively improving. Dr. English had talked to his family and children. They would like to go to rehabilitation. They feel hemodialysis would be the best plan for medium term. Dr. Hathaway placed tunneled dialysis catheter, and continue dialysis at discharge. Hope to get him out on Saturday. 2. Hypotension. We stopped the hydralazine. 3. Anemia. Given some blood yesterday. 4. Chronic obstructive pulmonary disease. 5. History of coronary artery disease. Continue present regimen. Will check his complete blood count and electrolytes I think in the morning.
[2017-02-27] MEDS: ELIQUIS PO SCH ×2 (12:00→21:31)
[2017-02-27] MEDS: FOLIC ACID PO SCH (12:01)
[2017-02-27] MEDS: FLOMAX PO SCH (12:01)
[2017-02-27] MEDS: ASPIRIN PO SCH (12:01)
[2017-02-27] MEDS: FLEXERIL PO SCH (12:01)
--- NOTE | 2017-02-27 14:11 | PROGRESS NOTE ---
DATE: 02/27/2017 SUBJECTIVE: Patient is currently resting in bed. He is currently n.p.o. and is waiting to go for a tunneled dialysis catheter placement and dialysis later today. OBJECTIVE: Vital Signs: Temperature 97.8 degrees, pulse 73, respiratory rate 14, blood pressure 112/45. Intake 1.1 L. Output 5.5 L. PHYSICAL EXAMINATION: General: Elderly gentleman resting in bed. Awake and alert. HEENT: YVONNE. Arcus senilis noted. His oral mucosa is moist. Neck: Supple. Trachea midline. Cardiovascular: Regular rate and rhythm. No murmur or gallop appreciated. Pulmonary: Equal excursion. He is clear bilaterally. Abdomen: Soft, with positive bowel sounds. Genitourinary: Continues with mild edema. Integumentary: Skin is warm and dry , without rash or lesion. Extremities: Continues to have some bilateral lower extremity edema as well as dependent edema to the upper extremities. LABORATORY DATA: We have no new laboratories today. ASSESSMENT AND PLAN: 1. Acute on chronic kidney disease with fluid volume overload now requiring dialysis. He had some significant hypotension yesterday during dialysis. Will stop his lisinopril and UF only today. He is to go for a tunneled dialysis catheter so that he can continue with outpatient hemodialysis initially. He did already have outpatient laboratories drawn for this on 02/20/2017. Hepatitis panel was negative. 2. Electrolytes and acid-base balance acceptable. Plan to check laboratories in the morning and dialyze again. 3. Chronic obstructive pulmonary disease and history of coronary artery disease , followed by primary. 4. Anemia. He received packed red blood cells yesterday. Check laboratories in the morning and transfuse if needed. Seen, data reviewed, discussed with Danielle Dennis on 02/27/17. I agree with the above assessment and plan of care. rg Dictated by TERESSA Avina for Rayo English MD [facility]IT[facility]ukasz
[2017-02-27] MEDS: BREO ELLIPTA 200/25 MCG INH INH SCH (15:14)
[2017-02-27] MEDS: VENOFER 200 MG in NS 150 ML IV SCH (15:57)
[2017-02-27 19:09] LABS: HEMATOCRIT 28.1 % (42.0-52.0); HEMOGLOBIN 8.9 g/dL (14.0-18.0); MCH 29.9 PG (27-31); MCHC 31.7 g/dL (33-37); MCV 94.3 FL (81-99); MPV 12.1 FL (7.4-10.4); RBC 2.98 XMIL (4.7-6.1)
[2017-02-27 19:26] LABS: ALBUMIN 3.5 g/dL (3.5-5.0); CALCIUM 8.9 mg/dL (8.8-10.2); POTASSIUM 4.4 mmol/L (3.5-5.1)
[2017-02-27] MEDS: ULTRAM PO PRN (22:27)
[2017-02-28] MEDS: ALBUTEROL NEB INH SCH ×5 (02:33→21:20)
[2017-02-28 05:26] LABS: MANUAL DIFF NEEDED? NO
[2017-02-28 05:34] LABS: BASO% 0.5 % (0.0-0.8); EOS# 0.61 X1000 (0.0-0.7); EOS% 7.7 % (0.0-10.0); HEMOGLOBIN 7.9 g/dL (14.0-18.0); LYMPH# 0.42 X1000 (1.2-3.4); LYMPH% 5.3 % (20.5-51.1); MCH 29.7 PG (27-31); MCHC 31.6 g/dL (33-37); MONO# 1.07 X1000 (0.11-0.59); MONO% 13.5 % (1.7-9.3); MPV 11.8 FL (7.4-10.4); PLT 169 X1000 (130-400); RBC 2.66 XMIL (4.7-6.1)
[2017-02-28] MEDS: PRILOSEC PO SCH ×2 (05:48→06:04)
[2017-02-28 06:05] LABS: MAGNESIUM 1.9 mg/dL (1.5-2.7); POTASSIUM 4.5 mmol/L (3.5-5.1)
--- NOTE | 2017-02-28 06:48 | PROGRESS NOTE ---
DATE: 02/28/2017 SUBJECTIVE: Mr. Hutchison feels pretty good. He was awake at 6:00 in the morning. He is breathing a lot better. Feels good. His son was at the bedside. We were pleased with the progress he has made. OBJECTIVE: Temperature 98.3 degrees, pulse 69, respirations 14, blood pressure 87/42. CVP less than 6 cm. Lungs are clear in all lung ryan. Cardiovascular: Regular rhythm and rate without murmurs or S3. I noticed they got 4.5 L off yesterday. LABORATORY: From this morning, white count 7920, hematocrit is 25, hemoglobin 7.9, platelet count 169,000. Chemistry: Sodium 139, potassium 4.5, bicarb 25. BUN 57, creatinine 5.0. Albumin 3.5. ASSESSMENT AND PLAN: 1. [id number] kidney disease. Fluid volume overload requiring dialysis. I will continue to watch his hemoglobin and will discuss with Dr. English. He has a history of iron deficiency anemia as well. He was getting some iron infusions before and may periodically have to give him some blood with dialysis. 2. Electrolytes and acid base looks good. 3. History of chronic obstructive pulmonary disease. 4. History of coronary artery disease. Doing well. Hope to get him to rehab tomorrow. Continue his hemodialysis. He has made good progress with close to 50 pounds of fluid diuresed.
--- NOTE | 2017-02-28 07:12 | DISCHARGE SUMMARY ---
ADMISSION DATE: 02/13/2017 DISCHARGE DATE: 03/01/2017 HISTORY: An 86-year-old male came in presenting with complaints of shortness of breath, trouble breathing, increased orthopnea. Noticed increased swelling in legs and arms. He had over 3+ pitting edema on his arms and his legs and anasarca all the way to his waist and scrotal swelling. I attempted to diurese him with high-dose Lasix and had some fluid mobilization, but had to go to hemodialysis. His creatinine was going up. We made good progress with hemodialysis, getting between 4 and 8 L off each day and had over 50 pounds of fluid diuresed. Breathing was better and he felt better and obvious improvement in his anasarca. Still has his Apple catheter in. Dr. English discussed the possibility of peritoneal dialysis. Family really wanted to stay with hemodialysis. We did give him some blood and are watching his hemoglobin. He has a history of iron deficiency anemia and also chronic anemia from underlying chronic disease. Dexter he could go to rehab on 03/01/2017. OTHER PAST MEDICAL HISTORY/PERTINENT COMORBIDITIES: 1. Atrial fibrillation. His rate stayed fairly well controlled. 2. Hypertension. 3. Dyslipidemia. 4. COPD. 5. Apple catheter in place because of benign prostatic hypertrophy and urinary retention. I want to keep the Apple catheter in. 6. He has been told he had congestive heart failure. Had a myocardial perfusion scan in March 2015. Negative Lexiscan. Stress echocardiogram images revealed dilated left ventricle. There was a fixed defect in basal inferior wall. In addition, there was a fixed defect in the left ventricle diagnostic of an infarct or scar. Ejection fraction is 52%. Low-grade aliza-infarct ischemia in the inferior wall at that time. Echocardiogram done in 08/29/2016. Technically difficult, but there was mildly concentric LVH. Ejection fraction 55%. There is a dilated right ventricle. Mild degree of aortic stenosis. Mean gradient was 16 mmHg. Moderate degree of aortic regurgitation. Impaired left ventricular relaxation. Moderate degree of mitral regurgitation. The pulmonary pressure was 47 mmHg. Had a carotid Doppler done. Had a coronary calcium report in the past as well. Carotid study March 2015. Right side remains satisfactory post endarterectomy. Apparently, he has had a right endarterectomy. Left has had 40% to 59% stenosis. The patient was eating well. His bowels were moving well. DISCHARGE MEDICATIONS: He will be on albuterol inhalers as needed, Eliquis 2.5 mg b.i.d. coagulation for atrial fibrillation, aspirin 81 mg a day Flexeril 10 mg a day, Breo Ellipta 200-25 one puff daily, folic acid 1 mg daily, Antivert 25 mg q.6 hours, Flomax 0.4 mg a day, Ultram 50 mg q.6 hours p.r.n. pain.
[2017-02-28] MEDS: ELIQUIS PO SCH ×2 (09:36→21:10)
[2017-02-28] MEDS: FLOMAX PO SCH (09:36)
[2017-02-28] MEDS: ASPIRIN PO SCH (09:36)
[2017-02-28] MEDS: FOLIC ACID PO SCH (09:36)
[2017-02-28] MEDS: FLEXERIL PO SCH (09:36)
[2017-02-28] MEDS: BREO ELLIPTA 200/25 MCG INH INH SCH (10:10)
--- NOTE | 2017-02-28 17:12 | PROGRESS NOTE ---
DATE: 02/28/2017 SUBJECTIVE: Patient resting in bed asleep. He is breathing easily. He does not arouse to tactile stimuli. OBJECTIVE: Vital Signs: Temperature 96.5 degrees, pulse 71, respiratory rate 23, blood pressure 81/39. Intake 320 mL. Output 4.7 L. General: Elderly gentleman resting in bed asleep. HEENT: Normocephalic atraumatic. Oral mucosa dry. Neck: Supple. Trachea midline. Cardiovascular: Regular rate and rhythm without murmur or gallop. Pulmonary: He has equal excursion. He has easy breathing and no increased work of breathing noted. Abdomen: Soft, with positive bowel sounds. : Not inspected. Integumentary: Skin is warm and dry. Extremities : With bilateral lower extremity edema and dependent edema. LAB DATA: WBC of 7.9, hemoglobin 7.9. Sodium 139, potassium 4.5, CO2 25, creatinine 5.0. ASSESSMENT AND PLAN: 1. Acute on chronic kidney disease with fluid volume overload requiring dialysis. We have gotten him pretty much to dry state. Will transition him over to a 3 day a week dialysis plan. We have asked Dr. Hathaway to replace his Vas-Cath with a tunnel dialysis catheter. This apparently is supposed to be done prior to his discharge. 2. Electrolytes, acid-base balance, anemia. These are stable. He is a little bit anemic. Check labs tomorrow when we dialyze him and if need be we will transfuse. 3. Disposition. He is supposed to go to [facility] we understand. He needs to have his Vas-Cath changed out to a tunnel catheter prior to his discharge. Spoke with the charge nurse on [facility] about this. They are aware. We will speak with Surgery and make sure that this is coordinated. Seen, data reviewed, discussed with Danielle Dennis on 03/01/17. I agree with the above assessment and plan of care. rg Dictated by TERESSA Avina for Rayo English MD [facility]uk[facility]
[2017-02-28] MEDS: ULTRAM PO PRN (21:09)
[2017-03-01] MEDS: ALBUTEROL NEB INH SCH ×4 (04:00→21:15)
[2017-03-01] MEDS: PRILOSEC PO SCH (06:33)
[2017-03-01] MEDS: ASPIRIN PO SCH (08:12)
[2017-03-01] MEDS: ELIQUIS PO SCH ×2 (08:12→21:02)
[2017-03-01] MEDS: FLOMAX PO SCH (08:12)
[2017-03-01] MEDS: FOLIC ACID PO SCH (08:12)
[2017-03-01] MEDS: FLEXERIL PO SCH (08:12)
[2017-03-01] MEDS ORDERED: NS 2,000 ML ONE (08:16)
[2017-03-01] MEDS ORDERED: HEPARIN IV PRN (08:54)
[2017-03-01] MEDS ORDERED: TIGHT: 0.2 ML/HR MISC PRN (08:54)
[2017-03-01] MEDS ORDERED: NS 2,000 ML MISC PRN (08:54)
--- NOTE | 2017-03-01 10:06 | PROGRESS NOTE ---
DATE: 03/01/2017 SUBJECTIVE: Mr. Hutchison is breathing better, doing better. Anxious to get to rehab. I think they are contemplating putting a tunneled catheter. Dr. Hathaway is consulted. OBJECTIVE: Vital Signs: Temp 98.3 degrees, pulse 60 respirations 13, blood pressure 90/44. HEENT: Pupils are equal round. CVP less than 6 cm. Lungs: Clear in all lung ryan. Cardiovascular: Regular rhythm and rate without murmur or S3. Abdomen: Soft. Skin is warm and dry. LAB: Reviewed lab from yesterday, hematocrit 25, hemoglobin 7.9. Chemistries looked good. ASSESSMENT AND PLAN: 1. Anasarca, renal failure and right-sided heart failure. Making progress on dialysis. Dr. Hathaway replaced the Vas-Cath with a tunneled dialysis catheter this morning. 2. Electrolytes, acid base and anemia, stable. 3. Hope to get to [facility]. 4. History of coronary artery disease. 5. History of chronic obstructive pulmonary disease. 6. Reviewed his orders. I do not see any changes. 7. Note, also he has got a Apple catheter in which we will keep in. He has benign prostatic hypertrophy and scrotal swelling and so we will keep his Apple catheter in.
--- NOTE | 2017-03-01 12:29 | PROGRESS NOTE ---
DATE: 03/01/2017 SUBJECTIVE: We had to cut his dialysis somewhat short because his blood pressure was dropping significantly. He did receive Flomax this morning. Otherwise, he feels well. He states he has been walking with therapy. OBJECTIVE: Blood pressure 95/51, heart rate 64, respirations 19, afebrile. Generally, he is a chronically ill, elderly man, in no distress. Skin is warm and dry. Conjunctivae are pink. Neck veins are not appreciated. Heart is regular. No gallops. Lungs have equal breath sounds. No crackles. Abdomen is soft, nontender. Extremities have 1+ edema. No clubbing or cyanosis. No laboratory data today. IMPRESSION: Renal failure and congestive heart failure. We will hold dialysis over the weekend. We will ask Dr. Hathaway to change his catheter to a tunnel catheter on Saturday anticipating discharge.
[2017-03-01] MEDS: ULTRAM PO PRN (21:02)
[2017-03-02] MEDS: ALBUTEROL NEB INH SCH ×4 (03:50→22:46)
[2017-03-02] MEDS: PRILOSEC PO SCH (06:00)
[2017-03-02] MEDS: ELIQUIS PO SCH ×2 (08:00→21:00)
[2017-03-02] MEDS: FLEXERIL PO SCH (08:00)
[2017-03-02] MEDS: ASPIRIN PO SCH (08:00)
[2017-03-02] MEDS: FOLIC ACID PO SCH (08:00)
[2017-03-02] MEDS: BREO ELLIPTA 200/25 MCG INH INH SCH (11:20)
--- NOTE | 2017-03-02 14:19 | PROGRESS NOTE ---
DATE: 03/02/2017 SUBJECTIVE: He feels good, had a good night. Breathing comfortably. Eating well. OBJECTIVE: Vital signs: Vital signs are stable. Blood pressure 145/70, pulse 80, respirations 20, afebrile. Lungs: Clear in all lung ryan. Cardiac: Regular rate and rhythm without murmur or S3. Abdomen: Soft. Skin: Warm and dry. Marked decrease in the swelling in his arms and scrotum. His legs and scrotal area, in particular, look good. Apple catheter is still in place. ASSESSMENT AND PLAN: 1. Biventricular failure, predominantly right-sided with renal dysfunction. Continue hemodialysis. Plan is to put a tunneled catheter in on Saturday and take out his Vas-Cath. 2. Chronic obstructive pulmonary disease on O2. 3. History of coronary artery disease. 4. Nutrition looks good. 5. His sugars look pretty good. cc: Skip Acharya MD
[2017-03-02] MEDS: ULTRAM PO PRN (21:00)
[2017-03-03] MEDS: ALBUTEROL NEB INH SCH ×4 (03:24→22:49)
[2017-03-03] MEDS: PRILOSEC PO SCH (06:34)
[2017-03-03] MEDS: FOLIC ACID PO SCH (08:04)
[2017-03-03] MEDS: ELIQUIS PO SCH ×2 (08:04→20:10)
[2017-03-03] MEDS: FLEXERIL PO SCH (08:04)
[2017-03-03] MEDS: ASPIRIN PO SCH (08:05)
--- NOTE | 2017-03-03 09:24 | PROGRESS NOTE ---
DATE: 03/03/2017 SUBJECTIVE: Mr. Hutchison is awake and alert. Has no complaints. Had a good night. Breathing comfortably. Bowels are moving. He is eating well. PHYSICAL EXAMINATION: Vital Signs: Temperature 99 degrees, pulse 67, respirations 20, blood pressure 108/48. CVP less than 6 cm. Respiratory: Lungs are clear anterolateral. Cardiovascular Examination: Regular rhythm and rate without murmur or S3. Abdomen: Soft. Skin: Warm and dry. Weight: 16s pounds. LAB: Reviewed from the . ASSESSMENT AND PLAN: 1. Biventricular failure, renal insufficiency, anasarca. Has had good diuresis with hemodialysis hemofiltrate. The plan is for a tunnel catheter tomorrow. 2. Chronic obstructive pulmonary disease, on oxygen. Air and gas exchange are good. 3. History of coronary artery disease. 4. Nutrition, looks good. 5. Sugars, under good control. We will check electrolytes again in the morning. Last chest x- ray was on the . cc: Skip Acharya MD
[2017-03-03] MEDS: BREO ELLIPTA 200/25 MCG INH INH SCH (11:17)
[2017-03-04] MEDS: ALBUTEROL NEB INH SCH ×4 (03:07→22:55)
[2017-03-04] MEDS: PRILOSEC PO SCH (06:30)
[2017-03-04 06:38] LABS: MCV 96.9 FL (81-99); MPV 11.9 FL (7.4-10.4); RBC 2.58 XMIL (4.7-6.1)
[2017-03-04] MEDS ORDERED: TIGHT: 0.2 ML/HR MISC PRN (06:54)
[2017-03-04] MEDS ORDERED: HEPARIN IV PRN (06:54)
[2017-03-04] MEDS ORDERED: NS 2,000 ML MISC PRN (06:54)
[2017-03-04 07:19] LABS: ALBUMIN 3.2 g/dL (3.5-5.0); CALCIUM 9.1 mg/dL (8.8-10.2); POTASSIUM 5.1 mmol/L (3.5-5.1)
[2017-03-04] MEDS ORDERED: NS 2,000 ML ONE (08:26)
[2017-03-04] MEDS ORDERED: EPOGEN SUBQ ONE (08:41)
--- NOTE | 2017-03-04 09:02 | PROGRESS NOTE ---
DATE: 03/04/2017 Mr. Nik Hutchison continues hemodialysis. The family has decided on chronic hemodialysis as a way to dialyze him. He is an 86-year-old male. He is dialyzing with a Vas-Cath at this time, and we need to place a PermCath. I have discussed this procedure in detail with him including risks of bleeding, infection, pneumothorax, nonfunctional catheter, infected catheter. He understands the need for this operation and its risks, and he wants to proceed. cc: Natali Hathaway MD
--- NOTE | 2017-03-04 09:44 | PROGRESS NOTE ---
DATE: 03/04/2017 SUBJECTIVE: He states he is feeling fine. No shortness of breath. OBJECTIVE: Vital Signs: Blood pressure 121/56, heart rate 72, respirations 16, afebrile. Intake 650 mL. Output 600 mL. General Appearance: No acute distress. Skin: Warm and dry. Eyes: Conjunctivae are pink. Neck: Neck veins are not appreciated. Heart: Regular with a murmur. Lungs: Have equal breath sounds. No crackles. Abdomen: Soft, nontender. Bowel sounds present. Extremities: Have 1+ edema. No clubbing or cyanosis. LABORATORY DATA: Sodium 139, potassium 5.1, chloride 99, bicarbonate 26, BUN 91, creatinine 6.0, hemoglobin 9.8. IMPRESSION: 1. End-stage kidney disease. Continue routine dialysis today. 2. Dialysis access: Dr. Hathaway will change his Vas-Cath to a tunneled catheter this afternoon. 3. Anemia. We will dose again today with erythropoietin. DISPOSITION: Okay for discharge after surgery today from my perspective. cc: Rayo English MD
[2017-03-04] MEDS: BREO ELLIPTA 200/25 MCG INH INH SCH (15:41)
[2017-03-04] MEDS ORDERED: MARCAINE 0.25% PF/EPI 1:200,000 ONE (16:18)
[2017-03-04] MEDS ORDERED: HEPARIN ONE (16:18)
[2017-03-04] MEDS ORDERED: NS 250 ML ONE (16:18)
[2017-03-04] MEDS ORDERED: KEFZOL 1 GM/D5W 1 GM/50 ML IVPB ONE (16:25)
[2017-03-04] MEDS ORDERED: CLAVE SECONDARY SET 11953 ONE (16:25)
[2017-03-04] MEDS ORDERED: XYLOCAINE-MPF 1% ONE (16:28)
[2017-03-04] MEDS ORDERED: FENTANYL ONE (17:40)
[2017-03-04] MEDS ORDERED: VERSED ONE (17:40)
[2017-03-04] MEDS ORDERED: DIPRIVAN 1% ONE (17:41)
[2017-03-04] MEDS: FLEXERIL PO SCH (18:40)
[2017-03-04] MEDS: FOLIC ACID PO SCH (18:40)
[2017-03-04] MEDS: ASPIRIN PO SCH (18:40)
--- NOTE | 2017-03-04 19:42 | Diag Imaging Result Document ---
PROCEDURE NAME: CHEST-PORTABLE - 03/04/2017 PORTABLE CHEST: COMPARISON: Compared to 02/16/2017. There are no pneumothoraces. The heart is enlarged. The vascular stitch is less pronounced than on the prior exam. Pleural effusions are smaller than on prior exam. There is decreased basilar atelectasis. No consolidation. IMPRESSION: 1. No pneumothoraces. 2. Cardiomegaly with at least a tiny right pleural effusion.
--- NOTE | 2017-03-04 20:28 | OPERATIVE NOTE ---
PROCEDURE DATE: 03/04/2017 PREOPERATIVE DIAGNOSIS: End-stage renal disease, requiring chronic hemodialysis. POSTOPERATIVE DIAGNOSIS: End-stage renal disease, requiring chronic hemodialysis. PRINCIPAL PROCEDURE: 1. Removal of right internal jugular Vas-Cath. 2. Failed attempts using ultrasound to access the right internal jugular vein for PermCath placement. SURGEON: Natali Hathaway MD. ANESTHESIA: Local with IV sedation. ESTIMATED BLOOD LOSS: 30 mL. DRAINS: None. INDICATIONS: Mr. Nik Hutchison is an 86-year-old black male who I placed a Vas-Cath in at the beginning of his hospitalization because of end-stage renal disease, requiring hemodialysis. He has had a lot of fluid removed and plans are to send him to rehab but they wanted more permanent access in a PermCath. DESCRIPTION OF PROCEDURE: The patient was brought to the operating room, placed supine, received IV sedation. His right neck was prepped and draped in a sterile field. We used local anesthetic at our incision site. I cut the sutures for his Vas-Cath and removed it and held pressure at its exit site. We then used the ultrasound to try to access the internal jugular vein on the right side again for placement of a PermCath, but despite multiple sticks I was unable to access the right internal jugular vein despite using ultrasound. With ultrasound the vein appeared to be patent. I could compress it but I could not have the needle access this vein. After about 30 minutes of attempts we decided to stop, not go to another site at this time. It must be noted that he is on Eliquis and aspirin. Will stop the Eliquis and bring him back to try access at another time. cc: Natali Hathaway MD
[2017-03-05] MEDS: ALBUTEROL NEB INH SCH ×4 (03:44→23:29)
[2017-03-05] MEDS: PRILOSEC PO SCH (06:35)
[2017-03-05 06:50] LABS: ALBUMIN 3.3 g/dL (3.5-5.0); CALCIUM 8.5 mg/dL (8.8-10.2); POTASSIUM 4.2 mmol/L (3.5-5.1)
[2017-03-05] MEDS ORDERED: XYLOCAINE-MPF 2% ONE (08:40)
[2017-03-05] MEDS: ASPIRIN PO SCH (09:15)
[2017-03-05] MEDS: FOLIC ACID PO SCH (09:16)
[2017-03-05] MEDS: FLEXERIL PO SCH (09:16)
[2017-03-05] MEDS: BREO ELLIPTA 200/25 MCG INH INH SCH (09:17)
--- NOTE | 2017-03-05 14:25 | PROGRESS NOTE ---
DATE: 03/05/2017 TIME SEEN: 0810 SUBJECTIVE: Mr. Huthcison is resting quietly in bed. He is sitting up. He denies any chest pain. No increased work of breathing. States that he will need to go back to surgery and have another catheter placed. OBJECTIVE: Vital signs: His most recent vital signs, temperature 98.4 degrees , blood pressure 96/46, heart rate 57, respirations 16. He is on 2 L nasal cannula. Last recorded saturation 100%. He has had 885 in. He has had 3400 out with 3 L pulled on dialysis yesterday. LABORATORY DATA: This a.m. sodium 137, potassium 4.2, chloride 96, CO2 27, BUN 50, creatinine 3.6, glucose 91. Anion gap 14, calcium 8.5, phosphorus 3.4, albumin 3.3, previous magnesium of 2 yesterday. White count 3.87, hemoglobin 8, hematocrit 25, platelet count 180, 000. PHYSICAL EXAMINATION: General: This is an 86-year-old male. He is currently resting in bed. He is in no acute distress. Skin: Warm and dry. HEENT: Normocephalic, atraumatic. Conjunctivae pale. He has YVONNE. Mucous membranes moist. Neck: Supple. Trachea midline. No JVD. Cardiovascular: Regular rate and rhythm. He has a soft murmur. No gallop appreciated. Lungs: Clear to auscultation anteriorly. Equal excursion on room air. Abdomen: Soft, nontender. Positive bowel sounds. Genitourinary: Not inspected. Adequate void per Apple catheter. Extremities: 1+ edema with continued improvement to facial and upper extremities. No clubbing or cyanosis. Integumentary: No rashes or lesions noted. Neurological : Alert and oriented x3. ASSESSMENT AND PLAN: 1. End-stage renal disease. Patient continues on hemodialysis. He will be ready for discharge as soon as dialysis access can be established. rg 2. Electrolytes and acid-base balance. These are stable. 3. Anemia. Patient continues on erythropoietin. 4. Fluid volume overload. This has continued to improve on hemodialysis. No indications for any changes or intervention. I would like to thank you for allowing us to follow with this patient. Seen, data reviewed, discussed with Miranda Figueroa on 03/05/17. I agree with the above assessment and plan of care. rg Dictated by TERESSA Marino for Rayo English MD cc: TERESSA Marino MD [facility]
--- NOTE | 2017-03-05 14:47 | PROGRESS NOTE ---
DATE: 03/05/2017 Today Mr. Hutchison referred to be doing fine. According to him, he does not have any more shortness of breath. The swelling has remarkably improved and he feels a whole lot better. Moving around. OBJECTIVELY: Vitals: Blood pressure is 121/66. Pulse is 63, respirations 16, temperature is 98.0 degrees. General: Mr. Hutchison is an 86-year-old, male. He is in bed and does not seems to be in any distress. HEENT: Mucosa is pink and moist. Anicteric. Acyanotic. Neck: Supple. Chest: Air entry is bilaterally reduced. There is some still diffuse cores bilateral crepitations. Cardiovascular: Regular rate and rhythm. Abdomen: Soft, nontender. Extremities: No pedal edema. Skin: Has wrinkling which is consistent with recent extreme diuresis. LABORATORY DATA: No CBC. Chemistry: Sodium is 137, potassium is 4.2, chloride 95, bicarb is 27, BUN is 50, creatinine is 3.6. ASSESSMENT: 1. Fluid overload likely due to endstage renal disease. 2. End stage renal disease currently on hemodialysis. 3. Anemia of chronic kidney disease. 4. Hypertension. 5. Vascular access. So far attempts to have a tunnel cath yesterday failed. We are still pending for Surgery for their recommendation as to how to be able to get an access. 6. Indwelling Apple catheter. I was told the patient did have bladder outlet issues and a catheter was placed in by Urology and per Urology recommendation this has to remain in there until they see the followup with the patient. I was told by Dr. Acharya on this recommendation. So in general, I think Mr. Hutchison is relatively stable and he is to where he will probably be able to be discharged. We however are waiting vascular access for his hemodialysis. Once that is done, then we will be able to discharge the patient. From his notes, from review of his chart, it looks like he has a bed in [facility] whenever he is ready to be discharged. cc: Rene Person MD
--- NOTE | 2017-03-05 17:04 | PROGRESS NOTE ---
DATE: 03/05/2017 SUBJECTIVE: Mr. Hutchison underwent removal of his right internal jugular Vas-Cath yesterday afternoon, but I could not place a right internal jugular PermCath. I had problems re-accessing the right internal jugular vein, plus the patient had been on aspirin and Eliquis, and we felt we should stop. A postprocedure x-ray showed no pneumothorax. It must be noted that his creatinine went down today despite not being on dialysis from a creatinine of 6 to 3.5. He does have a Apple catheter tube in place and is making urine. He has been off his Eliquis for 24 hours. If his creatinine is improving off dialysis, we will discuss with Dr. English whether access is necessary. cc: Natali Hathaway MD
[2017-03-06] MEDS: ALBUTEROL NEB INH SCH ×4 (02:37→19:54)
[2017-03-06] MEDS: PRILOSEC PO SCH (06:40)
[2017-03-06] MEDS ORDERED: HEPARIN ONE (06:54)
[2017-03-06] MEDS ORDERED: NS 2,000 ML ONE (06:54)
[2017-03-06 07:02] LABS: ALBUMIN 3.2 g/dL (3.5-5.0); CALCIUM 8.7 mg/dL (8.8-10.2); POTASSIUM 4.2 mmol/L (3.5-5.1)
[2017-03-06 07:03] LABS: EOS% 9.9 % (0.0-10.0); HEMATOCRIT 24.8 % (42.0-52.0); IMM GRAN# 0.02 X1000 (0.0-0.04); IMM GRAN% 0.5 % (0.0-0.5); LYMPH# 0.53 X1000 (1.2-3.4); LYMPH% 13.2 % (20.5-51.1); MANUAL DIFF NEEDED? YES; MCH 30.8 PG (27-31); MCHC 32.3 g/dL (33-37); MCV 95.4 FL (81-99); MONO# 0.88 X1000 (0.11-0.59); MONO% 21.8 % (1.7-9.3); MPV 11.7 FL (7.4-10.4); NEUT% 53.6 % (42.2-75.2); PLT 158 X1000 (130-400)
[2017-03-06 08:09] LABS: BANDS 2 % (0-1); EOS 10 % (1-10); LYMPHS 8 % (21-51); MONO 20 % (1-9)
--- NOTE | 2017-03-06 08:35 | PROGRESS NOTE ---
DATE: 03/06/2017 SUBJECTIVE: Mr. Hutchison states he is feeling well today. Feels like his shortness of breath continues to improve, as does his physical conditioning. OBJECTIVE: Vital Signs: Blood pressure 102/48, heart rate 56, respirations 16, afebrile. Intake 580 mL. Output 250 mL. Physical Examination: General: No acute distress. Chronically ill. Skin: Warm and dry. HEENT: Conjunctivae are pink. Neck: Neck veins are distended. Trachea is midline. Heart: Regular. Lungs: Have equal breath sounds with rhonchi throughout. Abdomen: Soft and nontender. Bowel sounds are present. Extremities: Have 1 to 2+ edema. No clubbing or cyanosis. Laboratory Data: Sodium 136, potassium 4.2, chloride 98, bicarbonate 26, BUN 64, creatinine. 4.1. IMPRESSION: 1. Congestive heart failure and renal failure. We will continue dialysis on a 3 times weekly basis. He needs access placement and Dr. Hathaway will proceed with this when he feels it is safe from a surgical perspective. He has no acute indications for dialysis today. 2. Electrolytes/acid base, in target. 3. Anemia, stable. He has received intravenous iron as well as erythropoietin on a weekly basis. We will continue to manage this aggressively as an outpatient. 4. Hypotension: Asymptomatic. He is on no medications for blood pressure at this time. Observe. cc: Rayo English MD
[2017-03-06] MEDS: FLEXERIL PO SCH (08:55)
[2017-03-06] MEDS: ASPIRIN PO SCH (08:55)
[2017-03-06] MEDS: FOLIC ACID PO SCH (08:56)
[2017-03-06] MEDS: BREO ELLIPTA 200/25 MCG INH INH SCH (09:55)
--- NOTE | 2017-03-06 15:59 | PROGRESS NOTE ---
DATE: 03/06/2017 SUBJECTIVE: Today, Mr. Hutchison referred to be fine. He denies any acute problems. OBJECTIVE: Vital Signs: His blood pressure is 131/49, pulse 57, respiration is 14, temperature 97.5 degrees. General: Mr. Hutchison is an 86-year-old -[place] male. He is in bed. He does not seem to be in any distress. HEENT: Mucosa is pink and moist. Anicteric. Acyanotic. Neck is supple. Chest: Air entry is bilaterally reduced. There is diffuse coarse crackling throughout the entire lung ryan. Cardiovascular: Regular rate and rhythm. No murmurs, no rubs. No gallops. Abdomen is soft, nontender. Extremities: No pedal edema. Skin has wrinkling which is consistent with recent extreme fluid removal. LABORATORY DATA: CBC is reviewed. Hemoglobin is 8.0. Rest of cell lines are normal. Chemistry is reviewed. Creatinine is 4.1, BUN is 64. Is and Os: Patient only had urine output of 200. ASSESSMENT: 1. Fluid overload. On presentation, this has been managed adequately with dialysis. 2. End-stage renal disease, currently on hemodialysis. 3. Anemia of chronic kidney disease. 4. Hypertension currently controlled. 5. Congestive heart failure with preserved ejection fraction. 6. Mild pulmonary hypertension. 7. Vascular access. 8. Vitamin D deficiency. Vitamin D level is 9.1. We are going to start replacing this. 9. Secondary hyperparathyroidism. I think for now Mr. Hutchison remains clinically stable. He is making bare minimum urine, and his creatinine went up his BUN went up. He is having more findings on his lung exams. I think he is getting fluid overload again, at least from pulmonary standpoint. Maybe by tomorrow he will going to be needing dialysis. We are still waiting for surgery to evaluate him for the access. cc: Rene Person MD
[2017-03-06] MEDS: VITAMIN D PO SCH (17:13)
[2017-03-07] MEDS: ALBUTEROL NEB INH SCH ×4 (03:03→22:53)
[2017-03-07] MEDS: PRILOSEC PO SCH ×2 (05:52→06:01)
[2017-03-07 07:02] LABS: ALBUMIN 3.1 g/dL (3.5-5.0); CALCIUM 8.5 mg/dL (8.8-10.2); POTASSIUM 4.3 mmol/L (3.5-5.1)
[2017-03-07] MEDS: FLEXERIL PO SCH (08:10)
[2017-03-07] MEDS: ASPIRIN PO SCH (08:10)
[2017-03-07] MEDS: FOLIC ACID PO SCH (08:11)
[2017-03-07] MEDS: VITAMIN D PO SCH (08:11)
[2017-03-07] MEDS: BREO ELLIPTA 200/25 MCG INH INH SCH (08:36)
[2017-03-07] MEDS ORDERED: ASPIRIN PO SCH (09:17)
--- NOTE | 2017-03-07 13:43 | PROGRESS NOTE ---
DATE: 03/07/2017 SUBJECTIVE: Today Mr. Hutchison referred to be doing fine. He was actually sitting up in the chair after walking around. OBJECTIVE: Vital Signs: Blood pressure is 124/58, pulse of 67, respirations 20 , temperature 97.5 degrees. General: Mr. Hutchison is an 86-year-old male. He was sitting up in a chair. He did not seem to be in any distress. HEENT: Mucosa is pink and moist. Anicteric. Acyanotic. Neck: Supple. Chest: Air entry is bilaterally reduced. There is some diffuse coarse crackling in both lower lung ryan. Cardiovascular: Regular rate and rhythm. No murmurs, no rubs, no gallops. Abdomen: Soft. Extremities: No pedal edema. Central Nervous System: The patient is alert and oriented x4. LABORATORY DATA: Chemistry is reviewed. Acid base is normal. The BUN is up to 82. Creatinine is also slightly up to 4.7. The patient has not had dialysis in 2 days. Input and output, 575 urine output through the Apple catheter. Urine seems to be slightly picking up. ASSESSMENT AND PLAN: 1. Fluid overload on presentation, likely due to a combination of congestive heart failure and end-stage renal disease. 2. End-stage renal disease. The patient had a total of 8 sessions of hemodialysis while here in the hospital. So far, for the past 2 days, he has not had any dialysis. We are still awaiting for access. Of note, the patient's urine is slightly picking up. Acid base is acceptable, but her BUN and creatinine continue to worsen. 3. Hypertension, currently controlled. 4. Anemia of chronic kidney disease. The patient is on Epogen. 5. Diastolic heart failure. 6. Mild pulmonary hypertension. 7. Vitamin D deficiency with a vitamin D level of 9.1. The patient has been started on cholecalciferol. 8. 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 In general, Mr. Hutchison is relatively stable. We are still pending surgery to address his vascular access. I think once that is done he can be discharged either home or to a rehabilitation. cc: Rene Person MD [email or web address]
--- NOTE | 2017-03-07 14:35 | PROGRESS NOTE ---
DATE: 03/07/2017 SUBJECTIVE: Mr. Hutchison is currently resting in bed. He has no complaints. He is getting ready to eat his breakfast. We have requested that he remain NPO just in case he is possible to go to surgery today for placement of tunnel catheter. He is in agreement. OBJECTIVE: His most recent vital signs, his temperature is 97.7 degrees, blood pressure 109/49, heart rate 64, respirations 16. He is on 2 L nasal cannula. Last recorded saturation 100%. He has had 0 recorded in. He has had 575 out per Apple catheter that has just recently been removed. LABS: This morning, sodium 139, potassium 4.3, chloride 98, CO2 26, BUN 82, creatinine 4.7, glucose 102, anion gap 15, calcium 8.5, phosphorus 3.9, albumin 3.1. White count 4.03, hemoglobin 8, hematocrit 24.8, with a platelet count of 158,000. PHYSICAL EXAMINATION: General: This is an 86-year-old, male. He is currently resting in bed. He is in no acute distress. Skin: Warm and dry. HEENT: Atraumatic, normocephalic. Conjunctiva is pale. He has YVONNE. Mucous membranes are moist. Neck: Supple. Trachea midline. No JVD. Cardiovascular: Regular rate and rhythm. He is without murmur or gallop. Lungs: Clear to auscultation anterior. Otherwise he has a faint crackle to the right lower lobe. He remains on O2. Equal excursion. Abdomen: Large, round, soft, nontender, positive bowel sounds. Genitourinary: Patient has recently had a Apple catheter removed. He has minimal void. Not inspected. Extremities: He has 1 to 2+ lower extremity edema. Neurological: Alert and oriented x3. ASSESSMENT AND PLAN: 1. Acute versus end-stage renal disease. Patient continues with dialysis requirements of 3 times weekly. He is requiring a tunnel catheter placement later today. BUN has gone up over the last 2 days without dialysis. He now has congestion noted, crackles to the right base. 2. Electrolytes. Acid-base balance. These are in target. 3. Anemia. This is low but stable. He has received IV iron and erythropoietin on a weekly basis. 4. Congestive heart failure. Patient has right-sided heart failure with continued fluid volume overload. He has not had dialysis in 3 days. We are waiting for tunnel catheter to resume dialysis and schedule patient for outpatient follow up. I would to thank you for allowing us to follow with this patient. Seen, data reviewed, discussed with Miranda Figueroa on 03/07/17. I agree with the above assessment and plan of care. rg Dictated by TERESSA Marino for Rayo English MD cc: TERESSA Marino MD [facility]
[2017-03-07] MEDS ORDERED: XYLOCAINE 1%/EPI 1:100,000 ONE (16:41)
[2017-03-07] MEDS ORDERED: HEPARIN ONE (16:41)
[2017-03-07] MEDS ORDERED: NS 250 ML ONE (16:42)
[2017-03-07] MEDS ORDERED: KEFZOL 1 GM/D5W 1 GM/50 ML IVPB ONE (17:31)
[2017-03-07] MEDS: ULTRAM PO PRN (21:02)
[2017-03-07] MEDS ORDERED: VERSED ONE (22:22)
[2017-03-07] MEDS ORDERED: KETAMINE (DOSE) ONE (22:23)
--- NOTE | 2017-03-07 22:30 | OPERATIVE NOTE ---
PROCEDURE DATE: 03/07/2017 PREOPERATIVE DIAGNOSIS: End-stage renal disease requiring chronic hemodialysis. POSTOPERATIVE DIAGNOSIS: End-stage renal disease requiring chronic hemodialysis. PRINCIPAL PROCEDURE: Right internal jugular PermCath using ultrasound and fluoroscopy. SURGEON: Natali Hathaway MD. ANESTHESIA: Local with IV sedation. ESTIMATED BLOOD LOSS: 25 mL. DRAINS: None. INDICATIONS: Mr. Nik Hutchison is an 86-year-old black male who has end-stage renal disease and requires chronic hemodialysis. He is ready to be discharged to a custodial, and they want more long-term access, and so we placed a PermCath. DESCRIPTION OF PROCEDURE: The patient was brought to the operating room, placed supine, received IV sedation. His neck and chest were prepped and draped within a sterile field. He was given Ancef prophylactically. Using ultrasound, we identified the right internal jugular vein and on the first stick we accessed this internal jugular vein with an 18-gauge needle and through this needle we placed a guidewire into the right side of the heart. The position of the guidewire was checked with fluoroscopy. We made a counterincision on the anterior right chest, and we used a blunt tunneler and tunneled a precurved PermCath from the chest incision to the neck incision. We placed sequential dilators over the guidewire, and then we placed a dilator and sheath over the guidewire into the superior vena cava. We removed the dilator and the guidewire and through the sheath, we placed the distal end of our precurved Vas-Cath and we directed it into the superior vena cava as we peeled away the sheath. It was functioning well and was flushed with heparin and saline. We secured it at its exit site anterior chest with a 2-0 nylon stitch and then we secured the opening in the neck with a 4-0 Monocryl subcuticular stitch. Dressings were applied. He tolerated the procedure well. His Apple catheter tube was changed by the nurses at the end of the procedure. He will go the recovery room and then return to the floor. cc: Natali Hathaway MD
[2017-03-07] MEDS: PERIDEX MT SCH (22:44)
[2017-03-08] MEDS: ALBUTEROL NEB INH SCH ×3 (03:45→15:44)
[2017-03-08] MEDS: PRILOSEC PO SCH ×2 (05:56→06:26)
[2017-03-08 06:58] LABS: ALBUMIN 3.4 g/dL (3.5-5.0); CALCIUM 9.1 mg/dL (8.8-10.2); POTASSIUM 4.3 mmol/L (3.5-5.1)
[2017-03-08] MEDS ORDERED: HEPARIN IV PRN (07:09)
[2017-03-08] MEDS ORDERED: TIGHT: 0.2 ML/HR MISC PRN (07:09)
[2017-03-08] MEDS ORDERED: NS 2,000 ML MISC PRN (07:09)
[2017-03-08] MEDS ORDERED: HEPARIN ONE (07:27)
[2017-03-08] MEDS ORDERED: NS 2,000 ML ONE (07:27)
[2017-03-08] MEDS ORDERED: XYLOCAINE-MPF 2% ONE (09:47)
[2017-03-08] MEDS ORDERED: 1/2 NS 500 ML ONE (09:48)
[2017-03-08] MEDS ORDERED: PIGGYBACK SET 7393 ONE (09:48)
[2017-03-08] MEDS ORDERED: EXTENSION SET 32 IN 4522 ONE (09:48)
[2017-03-08] MEDS ORDERED: NS 1,000 ML ONE (11:34)
[2017-03-08] MEDS: FOLIC ACID PO SCH (12:22)
[2017-03-08] MEDS: VITAMIN D PO SCH (12:22)
[2017-03-08] MEDS: FLEXERIL PO SCH (12:22)
[2017-03-08] MEDS: PERIDEX MT SCH (12:22)
--- NOTE | 2017-03-08 15:17 | PROGRESS NOTE ---
DATE: 03/08/2017 SUBJECTIVE: He is feeling well today. He had his catheter placed last evening. He has been able to eat without difficulty. No nausea or shortness of breath. OBJECTIVE: Vital Signs: Blood pressure 115/69, heart rate 66, respirations 20, afebrile. General: He is an elderly man, chronically ill, in no distress. Skin: Warm and dry. HEENT: Conjunctivae are pink. Neck: Neck veins not appreciated. Heart: Regular, with gallop and murmur. Lungs: Equal breath sounds. No crackles. Abdomen: Soft, nontender. Bowel sounds are present. Extremities: Edema 2+. No clubbing or cyanosis. LABORATORY DATA: Sodium 141, potassium 4.3, chloride 100, bicarbonate 30, BUN 85, creatinine 4.4. IMPRESSIONS: 1. End-stage kidney disease and congestive heart failure. He will be discharged today to begin his routine outpatient prescription at [facility]. Electrolytes/acid-base are in target. 2. Anemia is low but stable. Will manage with IV iron and erythropoietin as appropriate in the outpatient seeing. Win for discharge. cc: Rayo English MD
--- NOTE | 2017-03-08 15:17 | DISCHARGE SUMMARY ---
ADMISSION DATE: 02/13/2017 DISCHARGE DATE: 03/08/2017 CONSULTATIONS: 1. Dr. Franklyn Harris with Cardiology. 2. Dr. Rayo English with Nephrology. 3. Dr. Braluio Hathaway with General Surgery. PERTINENT PROCEDURES: 1. Echocardiogram showed an EF of 55% and pulmonary arterial systolic pressure of 50 mmHg. 2. Insertion of a right-sided port by IR. 3. Right IJ Vas-Cath under fluoroscopy and ultrasound performed by Dr. Hathaway. 4. Removal of right IJ Vas-Cath since with several failed attempts using ultrasound-guided access right IJ vein for Perm-A-Cath placement. 5. 03/07/2017 right IJ Perm-A-Cath under ultrasound and fluoroscopy successful performed by Dr. Hathaway. DISCHARGE DIAGNOSIS: 1. Fluid volume overload on presentation with a combination of congestive heart failure with end- stage renal disease, status post right IJ Perm-A-Cath placement. Continue with hemodialysis as per Dr. English. 2. End-stage renal disease. Continue with hemodialysis. 3. Hypertension controlled. 4. Anemia of chronic disease. Patient is on Epogen. 5. Heart failure. Aware. 6. Mild pulmonary hypertension. Aware. 7. Vitamin D deficiency. Patient was started on cholecalciferol. 8. 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 Continue with supplementation. HOSPITAL COURSE: Briefly Mr. Hutchison is a very pleasant 86-year-old, who carries a past medical history of atrial fibrillation, hypertension, dyslipidemia, COPD. Apple catheter in place because of BPH and urinary retention. The Apple catheter will be kept in place. As well as congestive heart failure. Mr. Hutchison came to the ED with complaints of shortness of breath, trouble breathing, increased orthopnea, noticed increased swelling in his legs and arms. Had over 3+ pitting edema in his arms and legs and all the way to his waist with scrotal swelling. They attempted to diurese with high-dose Lasix and had some fluid immobilization. Dr. English was also brought on board. Ultimately the patient had to be placed on hemodialysis as his creatinine was not making any improvement. Progress was being made with pulling fluid off between 4 and 8 L each day. Over 50 pounds of fluid were pulled off. The patient's breathing improved. His anasarca improved. Peritoneal dialysis was discussed by Dr. English with the patient but the family wanted to stay with hemodialysis. He did receive some blood products throughout his stay. His hemoglobin and hematocrit was monitored closely. The patient was appropriate for discharge on 03/02/2017 however he had to have a more permanent hemodialysis access. His temporary right IJ was taken out by Dr. Hathaway and had several failed attempts at putting in a permanent Vas-Cath for his hemodialysis. On 03/07/2017 he did successfully have a right IJ permanent catheter successfully placed by Dr. Hathaway. On 03/08 he had received hemodialysis however patient's BUN has gone up over the last 2 days without being on dialysis. He did start to accumulate fluid at his right base again however his electrolytes and acid base remained in target. Again he was dialyzed again on 03/08/2017 and he is appropriate for discharge today. We will have his labs followed up as well as sent to Dr. English. He will continue to require hemodialysis 3 times a week. Vital signs at time of his discharge, temperature is 97.5 degrees, heart rate 68, respirations 20, blood pressure 115/69, O2 is 100% on room air. Patient's BUN and creatinine on 03/08 was 85 and 4.4. Discharge diet is healthy heart. DISCHARGE MEDICATION: As per Dr. Person. Please see MAR. FOLLOWUP: Patient is being discharged to [facility] rehab. He will follow with Dr. English on an outpatient basis to start his hemodialysis. He will go to [facility]. Please call and verify appointment scheduled at [phone], extension [phone] or [phone]. Patient can also follow up with his primary care physician, Dr. Melissa Delarosa after rehab. Patient can return to the ED for any worsening of symptoms. Discharge time greater than 30 minutes. Dictated by TERESSA Moody for Rene Person MD cc: MD Melissa Choe MD
[2017-03-08 15:24] VITALS: BP 121/69
[2017-03-08] MEDS: BREO ELLIPTA 200/25 MCG INH INH SCH (15:44)
== END 2017-03-08 18:12 ==
LOC: ED 12:59 → SUATTDRO 18:03 → EDIPHOLD 18:03 → 3S 02-14 11:41 → 4N 03-03 14:30
PROVIDERS: ATTEND Internal Medicine